=== PATIENT | male | born 1945 | race Caucasian/White ===

== ENCOUNTER 2017-04-30 13:12 | Inpatient (IN) | payer OTHER, BC ==
[~2017-04-30] VITALS: Ht 182.9 cm; Wt 127.0 kg
[~2017-04-30 13:12] MED LIST: ALLO1TAB51 PO; ASPCH81X PO; ATEN50TA8 PO; ONDA4TAB7 SL; PANT40TA PO; SIMV10TA2 PO
[2017-04-30] MEDS ORDERED: FENTANYL CITRATE INJ 50 MCG/1 ML 2 ML VIAL IV STA ×2 (13:41→16:40)
[2017-04-30] MEDS ORDERED: OPTIRAY 320 IV PRN (13:45)
[2017-04-30] MEDS ORDERED: ONDANSETRON INJ 2 MG/ML 2 ML VIAL ONE (13:56)
[2017-04-30 14:03] LABS: BASO % 0.2 %; BASO ABS # 0.02 K/uL (0-0.2); EOS % 0.4 %; EOS ABS # 0.04 K/uL (0-0.5); HEMATOCRIT 43.8 % (42-52); HEMOGLOBIN 15.1 g/dL (14.0-18.0); IG# 0.02 K/uL (0.00-0.02); LYMPH % 10.6 %; LYMPH ABS # 1.21 K/uL (1.2-3.4); MEAN CORPUSCULAR HEMOGLOBIN 29.3 pg (25-34); MEAN CORPUSCULAR HGB CONC 34.5 g/dl (32-36); MEAN PLATELET VOLUME 10.2 fL (7.4-10.4); MONO % 7.8 %; MONO ABS # 0.89 K/uL (0.11-0.59); NEUT % 80.8 %; PLATELET COUNT 232 K/uL (130-400); RED CELL DISTRIBUTION WIDTH CV 13.7 % (11.5-14.5); RED CELL DISTRIBUTION WIDTH SD 42.4 fL (36.4-46.3); WHITE BLOOD COUNT 11.38 K/uL (4.8-10.8)
[2017-04-30 14:09] LABS: ALBUMIN 4.3 gm/dl (3.4-5.0); ALT/SGPT 89 U/L (12-78); BLOOD UREA NITROGEN 12 mg/dl (7-18); CALCIUM 9.4 mg/dl (8.5-10.1); CARBON DIOXIDE 29 mmol/L (21-32); CREATININE 1.12 mg/dl (0.60-1.40); GLUCOSE 126 mg/dl (70-99); POTASSIUM 3.9 mmol/L (3.5-5.1); SODIUM 139 mmol/L (136-145)
[2017-04-30 14:15] LABS: ALKALINE PHOSPHATASE 48 U/L (45-117); AST/SGOT 74 U/L (15-37); TOTAL PROTEIN 7.8 gm/dl (6.4-8.2)
--- NOTE | 2017-04-30 14:20 | EMERGENCY ROOM VISIT NOTE ---
ED Visit Note First contact with patient: 13:24 CHIEF COMPLAINT: Abdominal pain HISTORY OF PRESENTING ILLNESS: This is a 71-year-old male who presents to the emergency department with complaint of upper abdominal pain that started yesterday. He states the pain started abruptly while at rest, was initially very sharp, but is now just a dull ache. He states the pain starts in the epigastric region and radiates down towards his belly button and out to both sides, constant and severe, currently rates as 5/10. He last ate at 11 AM today , states he has had some nausea but no issues with vomiting and eating does not make his pain better or worse. He has not tried any medications for the pain. He states that his abdomen has been feeling bloated today. He has had associated nausea, but no vomiting, denies any fevers or chills, diarrhea, constipation, bloody or black stools, urinary symptoms. The pain does not radiate up into his chest or into his back, he denies any chest pain or shortness of breath, dizziness, syncope, diaphoresis. Past medical history significant for hypertension, hyperlipidemia, and GERD. He denies any previous abdominal surgeries. Denies family history of heart disease. REVIEW OF SYSTEMS: A complete 10 point review of systems was reviewed with the patient with pertinent positives and negatives as per history of present illness. All else were negative. PAST MEDICAL HISTORY: Reviewed in chart. SOCIAL HISTORY: Lives at home with family. Denies tobacco use, admits to occasional alcohol use, denies recreational drug use. ALLERGIES: No known allergies. PHYSICAL EXAM: CONSTITUTIONAL: Pleasant and cooperative. No acute distress. Mildly dehydrated , but otherwise well appearing and well nourished. HEENT: Normocephalic, atraumatic. Pupils equal, round and reactive to light, EOMI. TMs normal. Pharynx normal. Tacky mucous membranes. NECK: Supple, full active range of motion without discomfort. RESPIRATORY: Clear to auscultation bilaterally with no wheezing, crackles, rhonchi or stridor. Equal expansion bilaterally. CARDIOVASCULAR: Regular rate and rhythm with no murmurs, rubs or gallops. Normal peripheral perfusion. No edema. GASTROINTESTINAL: Soft, diffusely tender across the upper abdomen, most tender in the epigastric area, mild tenderness over the periumbilical area, mildly distended. No rebound tenderness, slight guarding of the right and left upper quadrants. No palpable masses or HSM. No pulsatile masses on palpation or bruits heard on auscultation. No CVA tenderness. Bowel sounds present in all quadrants. MUSCULOSKELETAL: Full range of motion of all joints without discomfort. INTEGUMENTARY: No rash or other significant dermatologic conditions noted. NEUROLOGIC: Alert and oriented X 4 with normal affect. Cranial nerves II-XII grossly intact. No focal neurologic deficits noted. Normal strength and sensation in all 4 extremities. Normal speech. Normal gait observed. ED COURSE AND MEDICAL DECISION MAKING: CC: Patient presenting with complaint of abdominal pain DIFFERENTIAL DIAGNOSIS: Includes, but not limited to gastritis, GERD, gastroenteritis, peptic ulcer disease, AAA, ACS, cholecystitis, cholelithiasis, pancreatitis, UTI, bowel obstruction, bowel perforation, among others. INTERPRETATION OF LABS: Mild leukocytosis with left shift, no anemia, no significant electrolyte abnormalities, normal renal function, slightly elevated transaminases but otherwise normal liver enzymes, significantly elevated lipase . Troponin negative. UA shows trace protein, is otherwise negative. IMAGING: CHEST ONE VIEW PORTABLE CLINICAL HISTORY: eval epigastric abd pain pain COMPARISON STUDY: 11/24/2012 FINDINGS: Moderate cardiomegaly. Tortuous thoracic aorta. Diaphragms smooth. Lungs are clear. IMPRESSION: Moderate cardiomegaly. Otherwise negative study. ----- Abdomen and pelvis CTA CT DOSE: 1506.73 mGy.cm HISTORY: Mid abdominal pain. TECHNIQUE: Multiaxial CT images of the abdomen and pelvis were performed following the intravenous administration of contrast to evaluate the major arterial structures. Maximal intensity projection images were also obtained. A dose lowering technique was utilized adhering to the principles of ALARA. COMPARISON STUDY: None. FINDINGS: A 3.6 mm subpleural nodule seen within the lingula. Linear scarlike density within the left lower lobe. No pneumoperitoneum. No pneumatosis. No fractures within the visualized osseous structures. The liver, spleen, adrenal glands are unremarkable. There are 2 small hypodense lesions within the left kidney with the largest on image 166 measuring 1.3 cm. These are difficult to characterize due to their small size but favor cysts. 1.3 cm lesion within the right kidney on image 158 which appears to demonstrate enhancement. This is concerning for a solid renal mass. Punctate stone within the lower pole of the right kidney. No ureteral stones. No hydronephrosis. The bladder is not well-distended but appears unremarkable. Tiny fat-containing left inguinal hernia. A few small gallstones. No gallbladder wall thickening. Mild peripancreatic fat stranding surrounding the entire pancreas. This is consistent with acute pancreatitis. No evidence for pancreatic necrosis at this time. No peripancreatic fluid collections. No retroperitoneal lymphadenopathy. A few duodenal diverticula. The largest measures 1.5 cm. No bowel wall thickening or obstruction. Normal appendix. A few colonic diverticula. Abdominal aorta is normal in course and caliber. No evidence for dissection. The celiac artery and its major branches, superior mesenteric artery, and inferior mesenteric artery are widely patent. The bilateral iliac arteries are normal in course and caliber. There are single bilateral renal arteries which are widely patent. IMPRESSION: 1. Acute pancreatitis. No peripancreatic fluid collections. Follow-up nonemergent pancreatic CT is recommended once the patient's pancreatitis has resolved to exclude the less likely possibility of underlying lesion. 2. A 1.3 cm solid right renal mass. This is suspicious for renal cell carcinoma. This can be confirmed with follow-up dedicated renal MRI. 3. No significant stenosis or occlusion within the mesenteric vessels. No evidence for an abdominal aortic aneurysm. 4. Right-sided nephrolithiasis. No hydronephrosis. 5. Cholelithiasis. ----- ABDOMINAL ULTRASOUND, RIGHT UPPER QUADRANT HISTORY: Pancreatitis. COMPARISON: CT of the abdomen and pelvis April 30, 2017 and abdominal ultrasound February 15, 2015. FINDINGS: Liver is sonographically normal. Caliber of the common bile duct is at the upper limits of normal, measuring 6 mm. No common bile duct calculi are identified although these may be occult by sonography. There are multiple small stones within the gallbladder. There is no gallbladder wall thickening. The pancreas is partially obscured on this exam. No peripancreatic fluid collection is noted. There is no right hydronephrosis. IMPRESSION: 1. Cholelithiasis. No sonographic evidence of acute cholecystitis. 2. Partially obscured pancreas. 3. Borderline dilatation of the common bile duct. No common bile duct calculi identified by sonography. EKG: Shows sinus rhythm with occasional PVCs, left axis deviation, T wave inversions in the lateral leads by my interpretation. When compared to previous EKG from 05/26/2013, PVCs and T wave changes are new. MEDICATION RECONCILIATION: I attest that I have personally reviewed the patient 's current medication list. INITIAL VITAL SIGNS REVIEW: I reviewed the patient's initial vital signs and interpret them as follows: T: Afebrile; BP: Hypertensive; HR: Within normal limits; RR: Within normal limits; Pulse Ox: Within normal limits on room air. Blood pressure screening: The patient was found to have an elevated blood pressure and was referred to the inpatient hospitalist team for further management. SUMMARY: Patient was evaluated at bedside, history and physical exam performed. Patient is alert and oriented, no acute distress but does appear uncomfortable, resting calmly in the stretcher. Patient's abdomen is mildly distended, diffusely tender across the top of the abdomen, most tender in the epigastric region. He reports some nausea, but has not had any vomiting, and states he has been able to tolerate PO, and eating does not make his pain worse. Given his report of sudden onset of midline abdominal pain that has now become diffuse along with some abdominal bloating, I am most concerned for possible AAA. Orders were placed at bedside for labs, UA, IV fluids for hydration, IV fentanyl for pain, IV Zofran for nausea, chest x-ray, EKG, CTA abdomen/pelvis to evaluate for AAA and other intra-abdominal abnormalities. Patient discussed with Dr. Rajput, who agrees with my assessment and plan. Labs and imaging reviewed as above, findings consistent with acute pancreatitis. No evidence of AAA. Incidental finding of a right renal mass. Orders were placed for a right upper quadrant ultrasound, this was reviewed and does not show any significant evidence for common bile duct dilation or obstruction, and liver enzymes are not significantly elevated at this time. I discussed the patient over the phone with Dr. Rascon, gastroenterology, who states the patient most likely does not require an ERCP at this time, and should be admitted, kept NPO, and aggressively fluid hydrated. I spoke with Dr. Goldberg, hospitalist, who agrees to admit the patient. Patient reassessed multiple times throughout ED stay, the patient's pain has been adequately controlled with IV fentanyl and he remains stable. Patient was updated on all results and plan for admission, he verbalized understanding and was agreeable to this plan. Patient was stable at time of admission. Problem List Medical Problems: (1) HTN (hypertension) Status: Chronic Current/Historical Medications Scheduled Allopurinol (Allopurinol), 100 MG PO DAILY Aspirin (Aspirin Chewable), 81 MG PO DAILY Losartan Potassium (Losartan Potassium), 50 MG PO QPM Nebivolol Hcl (Bystolic), 5 MG PO QPM Pantoprazole Sodium (Protonix), 40 MG PO DAILY Simvastatin (Zocor), 20 MG PO QPM Allergies Coded Allergies: No Known Allergies (Unverified , 04/30/17) Vital Signs Date Time Temp Pulse Resp B/P (MAP) Pulse Ox O2 Delivery O2 Flow Rate FiO2 04/30/17 17:53 66 18 164/85 97 04/30/17 16:50 59 18 113/64 91 Room Air 04/30/17 15:11 56 18 124/56 91 Room Air 04/30/17 14:03 63 04/30/17 13:18 36.4 70 20 162/97 94 Room Air Laboratory Results 04/30/17 13:27 Red Blood Count 5.15, Mean Corpuscular Volume 85.0, Mean Corpuscular Hemoglobin 29.3, Mean Corpuscular Hemoglobin Concent 34.5, Mean Platelet Volume 10.2, Neutrophils (%) (Auto) 80.8, Lymphocytes (%) (Auto) 10.6, Monocytes (%) (Auto) 7.8, Eosinophils (%) (Auto) 0.4, Basophils (%) (Auto) 0.2, Neutrophils # (Auto) 9.20, Lymphocytes # (Auto) 1.21, Monocytes # (Auto) 0.89, Eosinophils # (Auto) 0.04, Basophils # (Auto) 0.02 04/30/17 13:27 Test 04/30/17 13:27 04/30/17 14:14 04/30/17 17:54 White Blood Count 11.38 K/uL (4.8-10.8) Red Blood Count 5.15 M/uL (4.7-6.1) Hemoglobin 15.1 g/dL (14.0-18.0) Hematocrit 43.8 % (42-52) Mean Corpuscular Volume 85.0 fL (80-100) Mean Corpuscular Hemoglobin 29.3 pg (25-34) Mean Corpuscular Hemoglobin Concent 34.5 g/dl (32-36) Platelet Count 232 K/uL (130-400) Mean Platelet Volume 10.2 fL (7.4-10.4) Neutrophils (%) (Auto) 80.8 % Lymphocytes (%) (Auto) 10.6 % Monocytes (%) (Auto) 7.8 % Eosinophils (%) (Auto) 0.4 % Basophils (%) (Auto) 0.2 % Neutrophils # (Auto) 9.20 K/uL (1.4-6.5) Lymphocytes # (Auto) 1.21 K/uL (1.2-3.4) Monocytes # (Auto) 0.89 K/uL (0.11-0.59) Eosinophils # (Auto) 0.04 K/uL (0-0.5) Basophils # (Auto) 0.02 K/uL (0-0.2) RDW Standard Deviation 42.4 fL (36.4-46.3) RDW Coefficient of Variation 13.7 % (11.5-14.5) Immature Granulocyte % (Auto) 0.2 % Immature Granulocyte # (Auto) 0.02 K/uL (0.00-0.02) Prothrombin Time 11.0 SECONDS (9.0-12.0) Prothromb Time International Ratio 1.0 (0.9-1.1) Anion Gap 6.0 mmol/L (3-11) Est Creatinine Clear Calc Drug Dose 85.7 ml/min Estimated GFR () 77.3 Estimated GFR (Non- 66.7 BUN/Creatinine Ratio 10.7 (10-20) Calcium Level 9.4 mg/dl (8.5-10.1) Total Bilirubin 0.9 mg/dl (0.2-1) Direct Bilirubin 0.4 mg/dl (0-0.2) Aspartate Amino Transf (AST/SGOT) 74 U/L (15-37) Alanine Aminotransferase (ALT/SGPT) 89 U/L (12-78) Alkaline Phosphatase 48 U/L (45-117) Troponin I < 0.015 ng/ml (0-0.045) Total Protein 7.8 gm/dl (6.4-8.2) Albumin 4.3 gm/dl (3.4-5.0) Triglycerides Level 127 mg/dl (0-150) Lipase 20162 U/L (73-393) Urine Color DK YELLOW Urine Appearance CLEAR (CLEAR) Urine pH 6.0 (4.5-7.5) Urine Specific Ledbetter 1.014 (1.000-1.030) Urine Protein TRACE (NEG) Urine Glucose (UA) NEG (NEG) Urine Ketones NEG (NEG) Urine Occult Blood NEG (NEG) Urine Nitrite NEG (NEG) Urine Bilirubin NEG (NEG) Urine Urobilinogen NEG (NEG) Urine Leukocyte Esterase NEG (NEG) Urine WBC (Auto) 1-5 /hpf (0-5) Urine RBC (Auto) 0-4 /hpf (0-4) Urine Hyaline Casts (Auto) 1-5 /lpf (0-5) Urine Epithelial Cells (Auto) 0-5 /lpf (0-5) Urine Bacteria (Auto) NEG (NEG) Medications Administered Medications (Trade) Dose Ordered Sig/Kylie Route Start Time Stop Time Status Last Admin Dose Admin Fentanyl Citrate (Fentanyl Inj) 100 mcg NOW STAT IV 04/30/17 13:41 04/30/17 13:43 DC 04/30/17 14:00 100 MCG Ondansetron HCl (Zofran Inj) 4 mg STK-MED ONCE .ROUTE 04/30/17 13:56 04/30/17 13:57 DC 04/30/17 14:00 4 MG Sodium Chloride 1,000 ml @ 999 mls/hr Q1H1M STAT IV 04/30/17 14:58 04/30/17 15:58 DC 04/30/17 15:10 999 MLS/HR Sodium Chloride 1,000 ml @ 999 mls/hr Q1H1M STAT IV 04/30/17 16:26 04/30/17 17:26 DC 04/30/17 16:47 999 MLS/HR Fentanyl Citrate (Fentanyl Inj) 100 mcg NOW STAT IV 04/30/17 16:40 04/30/17 16:41 DC 04/30/17 16:48 100 MCG Departure Information Referrals Lakia Roper D.O. (PCP) Patient Instructions My [facility]
[2017-04-30 14:30] LABS: LIPASE 40687 U/L (73-393)
--- NOTE | 2017-04-30 14:33 | DIAGNOSTIC IMAGING REPORT ---
CHEST ONE VIEW PORTABLE CLINICAL HISTORY: eval epigastric abd pain pain COMPARISON STUDY: 11/24/2012 FINDINGS: Moderate cardiomegaly. Tortuous thoracic aorta. Diaphragms smooth. Lungs are clear. IMPRESSION: Moderate cardiomegaly. Otherwise negative study. The above report was generated using voice recognition software. It may contain grammatical, syntax or spelling errors. Electronically signed by: Patric Moy M.D. 04/30/2017 2:32 PM Dictated Date/Time: 04/30/2017 2:31 PM
[2017-04-30] MEDS ORDERED: BYS/5 PO (14:48)
[2017-04-30] MEDS ORDERED: SIMV20TA2 PO (14:48)
[2017-04-30] MEDS ORDERED: CZR50 PO (14:48)
[2017-04-30] MEDS ORDERED: ONDANSETRON INJ 2 MG/ML 2 ML VIAL IV STA (14:58)
[2017-04-30] MEDS ORDERED: SODIUM CHLORIDE 0.9% 1000ML 1,000 ML IV STA ×2 (14:58→16:26)
--- NOTE | 2017-04-30 15:04 | DIAGNOSTIC IMAGING REPORT ---
Abdomen and pelvis CTA CT DOSE: 1506.73 mGy.cm HISTORY: Mid abdominal pain. TECHNIQUE: Multiaxial CT images of the abdomen and pelvis were performed following the intravenous administration of contrast to evaluate the major arterial structures. Maximal intensity projection images were also obtained. A dose lowering technique was utilized adhering to the principles of ALARA. COMPARISON STUDY: None. FINDINGS: A 3.6 mm subpleural nodule seen within the lingula. Linear scarlike density within the left lower lobe. No pneumoperitoneum. No pneumatosis. No fractures within the visualized osseous structures. The liver, spleen, adrenal glands are unremarkable. There are 2 small hypodense lesions within the left kidney with the largest on image 166 measuring 1.3 cm. These are difficult to characterize due to their small size but favor cysts. 1.3 cm lesion within the right kidney on image 158 which appears to demonstrate enhancement. This is concerning for a solid renal mass. Punctate stone within the lower pole of the right kidney. No ureteral stones. No hydronephrosis. The bladder is not well-distended but appears unremarkable. Tiny fat-containing left inguinal hernia. A few small gallstones. No gallbladder wall thickening. Mild peripancreatic fat stranding surrounding the entire pancreas. This is consistent with acute pancreatitis. No evidence for pancreatic necrosis at this time. No peripancreatic fluid collections. No retroperitoneal lymphadenopathy. A few duodenal diverticula. The largest measures 1.5 cm. No bowel wall thickening or obstruction. Normal appendix. A few colonic diverticula. Abdominal aorta is normal in course and caliber. No evidence for dissection. The celiac artery and its major branches, superior mesenteric artery, and inferior mesenteric artery are widely patent. The bilateral iliac arteries are normal in course and caliber. There are single bilateral renal arteries which are widely patent. IMPRESSION: 1. Acute pancreatitis. No peripancreatic fluid collections. Follow-up nonemergent pancreatic CT is recommended once the patient's pancreatitis has resolved to exclude the less likely possibility of underlying lesion. 2. A 1.3 cm solid right renal mass. This is suspicious for renal cell carcinoma. This can be confirmed with follow-up dedicated renal MRI. 3. No significant stenosis or occlusion within the mesenteric vessels. No evidence for an abdominal aortic aneurysm. 4. Right-sided nephrolithiasis. No hydronephrosis. 5. Cholelithiasis. Electronically signed by: Clif Grier M.D. 04/30/2017 3:03 PM Dictated Date/Time: 04/30/2017 2:44 PM
--- NOTE | 2017-04-30 16:21 | DIAGNOSTIC IMAGING REPORT ---
ABDOMINAL ULTRASOUND, RIGHT UPPER QUADRANT HISTORY: Pancreatitis. COMPARISON: CT of the abdomen and pelvis April 30, 2017 and abdominal ultrasound February 15, 2015. FINDINGS: Liver is sonographically normal. Caliber of the common bile duct is at the upper limits of normal, measuring 6 mm. No common bile duct calculi are identified although these may be occult by sonography. There are multiple small stones within the gallbladder. There is no gallbladder wall thickening. The pancreas is partially obscured on this exam. No peripancreatic fluid collection is noted. There is no right hydronephrosis. IMPRESSION: 1. Cholelithiasis. No sonographic evidence of acute cholecystitis. 2. Partially obscured pancreas. 3. Borderline dilatation of the common bile duct. No common bile duct calculi identified by sonography. Electronically signed by: Teo Rene M.D. 04/30/2017 4:20 PM Dictated Date/Time: 04/30/2017 4:17 PM
[2017-04-30] MEDS ORDERED: POLYETHYLENE (MIRALAX) 17 GM PACK PO PRN (17:15)
--- NOTE | 2017-04-30 17:26 | History and Physical ---
History & Physical Date & Time of Service: Apr 30, 2017 at 17:25 Chief Complaint: Stomach Pain Primary Care Physician: Lakia Roper D.O. History of Present Illness Source: patient 71 Yo presented with abdominal pain since yesterday , pain stared in mid abdomen , epigastric area and radiation to both flank had dull aching pain ,associated with Nausea this morning he woke up with similar pain 6/10 , abdominal bloating poor appetite with nausea , no episode of vomiting no fever or chills no diarrhea or dark stool called [facility] was advised to come to ER in ER lipase level elevated > 40, 000 CT abdomen pelvis /Abd USG suggestive of ac pancreatitis no Hx of ETOH intake Medication change : recently started on higher dose of simvastatin ( was on 20 mg X3 week ) to simvastatin 20 mg daily Social History Smoking Status: Never Smoker Marital Status: Multi-Drug Resistant Organisms History of MDRO: No Allergies Coded Allergies: No Known Allergies (Unverified , 04/30/17) Home Medications Scheduled Allopurinol (Allopurinol), 100 MG PO DAILY Aspirin (Aspirin Chewable), 81 MG PO DAILY Losartan Potassium (Losartan Potassium), 50 MG PO QPM Nebivolol Hcl (Bystolic), 5 MG PO QPM Pantoprazole Sodium (Protonix), 40 MG PO DAILY Simvastatin (Zocor), 20 MG PO QPM Review of Systems Constitutional: + chills, + weakness, + fatigue ENT: No hearing loss, No unusual epistaxis, No nasal symptoms, No sore throat, No tinnitus, No dental problems, No trouble swallowing, No problem reported Respiratory: No cough, No sputum, No wheezing, No shortness of breath, No dyspnea on exertion, No dyspnea at rest, No hemoptysis, No problem reported Abdomen: + pain, + nausea, + problem reported (epigastric pain radiation to sided ) Musculoskeletal: No joint pain, No muscle pain, No swelling, No calf pain, No problem reported Genitourinary - Male: No hematuria, No dysuria, No urinary frequency, No urinary urgency, No urinary hesitancy, No urinary retention, No urinary incontinence, No penile discharge, No lesions, No impotence, No problem reported Neurologic: No memory loss, No paralysis, No weakness, No numbness/tingling, No vertigo, No balance problems, No problem reported Physical Exam Vital Signs Date Time Temp Pulse Resp B/P (MAP) Pulse Ox O2 Delivery O2 Flow Rate FiO2 04/30/17 16:50 59 18 113/64 91 Room Air 04/30/17 15:11 56 18 124/56 91 Room Air 04/30/17 14:03 63 04/30/17 13:18 36.4 70 20 162/97 94 Room Air General Appearance: no apparent distress Eyes: normal inspection, PERRL, EOMI, sclerae normal Neck: no JVD, no carotid bruits, trachea midline Respiratory/Chest: chest non-tender, lungs clear, normal breath sounds, no respiratory distress Cardiovascular: regular rate, rhythm, no edema, no JVD Abdomen/GI: + tenderness (in mid abdomen ), + abnormal bowel sounds ( hypoactive ) Extremities/Musculoskelatal: normal capillary refill, no pedal edema Neurologic/Psych: no motor/sensory deficits, alert, oriented x 3 Diagnostics Laboratory Results Results Past 24 Hours Test 04/30/17 13:27 04/30/17 14:14 Range/Units White Blood Count 11.38 4.8-10.8 K/uL Red Blood Count 5.15 4.7-6.1 M/uL Hemoglobin 15.1 14.0-18.0 g/dL Hematocrit 43.8 42-52 % Mean Corpuscular Volume 85.0 80-100 fL Mean Corpuscular Hemoglobin 29.3 25-34 pg Mean Corpuscular Hemoglobin Concent 34.5 32-36 g/dl Platelet Count 232 130-400 K/uL Mean Platelet Volume 10.2 7.4-10.4 fL Neutrophils (%) (Auto) 80.8 % Lymphocytes (%) (Auto) 10.6 % Monocytes (%) (Auto) 7.8 % Eosinophils (%) (Auto) 0.4 % Basophils (%) (Auto) 0.2 % Neutrophils # (Auto) 9.20 1.4-6.5 K/uL Lymphocytes # (Auto) 1.21 1.2-3.4 K/uL Monocytes # (Auto) 0.89 0.11-0.59 K/uL Eosinophils # (Auto) 0.04 0-0.5 K/uL Basophils # (Auto) 0.02 0-0.2 K/uL RDW Standard Deviation 42.4 36.4-46.3 fL RDW Coefficient of Variation 13.7 11.5-14.5 % Immature Granulocyte % (Auto) 0.2 % Immature Granulocyte # (Auto) 0.02 0.00-0.02 K/uL Prothrombin Time 11.0 9.0-12.0 SECONDS Prothromb Time International Ratio 1.0 0.9-1.1 Sodium Level 139 136-145 mmol/L Potassium Level 3.9 3.5-5.1 mmol/L Chloride Level 104 98-107 mmol/L Carbon Dioxide Level 29 21-32 mmol/L Anion Gap 6.0 3-11 mmol/L Blood Urea Nitrogen 12 7-18 mg/dl Creatinine 1.12 0.60-1.40 mg/dl Est Creatinine Clear Calc Drug Dose 85.7 ml/min Estimated GFR () 77.3 Estimated GFR (Non- 66.7 BUN/Creatinine Ratio 10.7 10-20 Random Glucose 126 70-99 mg/dl Calcium Level 9.4 8.5-10.1 mg/dl Total Bilirubin 0.9 0.2-1 mg/dl Direct Bilirubin 0.4 0-0.2 mg/dl Aspartate Amino Transf (AST/SGOT) 74 15-37 U/L Alanine Aminotransferase (ALT/SGPT) 89 12-78 U/L Alkaline Phosphatase 48 45-117 U/L Troponin I < 0.015 0-0.045 ng/ml Total Protein 7.8 6.4-8.2 gm/dl Albumin 4.3 3.4-5.0 gm/dl Lipase 66719 73-393 U/L Urine Color DK YELLOW Urine Appearance CLEAR CLEAR Urine pH 6.0 4.5-7.5 Urine Specific [place] 1.014 1.000-1.030 Urine Protein TRACE NEG Urine Glucose (UA) NEG NEG Urine Ketones NEG NEG Urine Occult Blood NEG NEG Urine Nitrite NEG NEG Urine Bilirubin NEG NEG Urine Urobilinogen NEG NEG Urine Leukocyte Esterase NEG NEG Urine WBC (Auto) 1-5 0-5 /hpf Urine RBC (Auto) 0-4 0-4 /hpf Urine Hyaline Casts (Auto) 1-5 0-5 /lpf Urine Epithelial Cells (Auto) 0-5 0-5 /lpf Urine Bacteria (Auto) NEG NEG Diagnostic Radiology CTA ANGIOGRAPHY OF ABDOMEN/PELVIS : IMPRESSION: 1. Acute pancreatitis. No peripancreatic fluid collections. Follow-up nonemergent pancreatic CT is recommended once the patient's pancreatitis has resolved to exclude the less likely possibility of underlying lesion. 2. A 1.3 cm solid right renal mass. This is suspicious for renal cell carcinoma. This can be confirmed with follow-up dedicated renal MRI. 3. No significant stenosis or occlusion within the mesenteric vessels. No evidence for an abdominal aortic aneurysm. 4. Right-sided nephrolithiasis. No hydronephrosis. 5. Cholelithiasis. ABDOMEN ULTRASOUND : ABDOMINAL ULTRASOUND, RIGHT UPPER QUADRANT HISTORY: Pancreatitis. COMPARISON: CT of the abdomen and pelvis April 30, 2017 and abdominal ultrasound February 15, 2015. FINDINGS: Liver is sonographically normal. Caliber of the common bile duct is at the upper limits of normal, measuring 6 mm. No common bile duct calculi are identified although these may be occult by sonography. There are multiple small stones within the gallbladder. There is no gallbladder wall thickening. The pancreas is partially obscured on this exam. No peripancreatic fluid collection is noted. There is no right hydronephrosis. IMPRESSION: 1. Cholelithiasis. No sonographic evidence of acute cholecystitis. 2. Partially obscured pancreas. 3. Borderline dilatation of the common bile duct. No common bile duct calculi identified by sonography. CHEST XRAY : CHEST ONE VIEW PORTABLE CLINICAL HISTORY: eval epigastric abd pain pain COMPARISON STUDY: 11/24/2012 FINDINGS: Moderate cardiomegaly. Tortuous thoracic aorta. Diaphragms smooth. Lungs are clear. IMPRESSION: Moderate cardiomegaly. Otherwise negative study. EKG Vent. rate 62 BPM SD interval 206 ms QRS duration 98 ms QT/QTc 410/416 ms P-R-T axes -7 -31 117 Sinus rhythm with occasional Premature ventricular complexes Left axis deviation Moderate voltage criteria for LVH, may be normal variant T wave abnormality, consider lateral ischemia Abnormal ECG When compared with ECG of 26-MAY-2013 07:14, Premature ventricular complexes are now Present T wave inversion now evident in Lateral leads Impression Assessment and Plan ACUTE PANCREATITIS ; presented with abdominal pain for [address] abdomen /pelvis shows : Acute pancreatitis. No peripancreatic fluid collections Abdominal USG : 1. Cholelithiasis. No sonographic evidence of acute cholecystitis. 2. Partially obscured pancreas. 3. Borderline dilatation of the common bile duct. No common bile duct calculi identified by sonography. Lipase level elevated > 40 K with mild elevation of ALT/AST pt given NSS IV fluid bolus in ER cont IVF LR @200 ml /hr pain control , NPO GI eval requested may Need MRCP to r/o choledocholithiasis pt has significant claustrophobia-will need Anxiolytic prior to MRI -ordered no hx of ETOH intake ordered for TG level repeat LFT/Lipase /Amylase level in AM HX OF PVC /PREMATURE VENTRICULAR CONTRACTION : follows with Cardiology Dr Owens had recent Holter monitor on low dose Beta duncan -Bystolic , on hold for NPO status pt denies of any symptom of palpitation or dizzy spell /chest tightness monitor RENAL MASS : incidental finding in CT abdomen A 1.3 cm solid right renal mass. This is suspicious for renal cell carcinoma. This can be confirmed with follow-up dedicated renal MRI. no report of hematuria or wt loss Urology consult requested HYPERLIPIDEMIA : hold statin for ac pancreatitis fasting lipid panel in AM labs HYPOTHYROIDISM : hold levothyroxine for NPO status /ac pancreatitis TSH level ordered HTN : SBP In 110-120's -possible due to intravascular vol loss due to ac pancreatitis Hold losartan cont aggressive Iv fluid resuscitation per Ac pancreatitis protocol FULL CODE -D/w pt DVT PROPHYLAXIS : SCD /TEDS pharmacological anticoagulation not ordered as pt may need GI procedure ERCP DISPOSITION : expected to be discharge home when medically stable Medicine follow up with Dr Stewart Level of Care Med/Surg Resuscitation Status FULL RESUSCITATION VTE Prophylaxis VTE Risk Assessment Done? Y/N: Yes Risk Level: Moderate Given or contraindicated: Annika Stockings, SCD's Additional Copies To Jose Manuel Stewart M.D.
[2017-04-30] MEDS ORDERED: LORAZEPAM 2 MG/ML 1 ML VIAL IV PRN (17:30)
[2017-04-30 18:10] VITALS: BP 159/80; PULSE 60; TEMP 36.3; O2SAT 93
[2017-04-30] MEDS ORDERED: LORAZEPAM INJ 1 MG in SYRINGE 0.5 ML IV PRN (18:45)
[2017-04-30] MEDS ORDERED: PANTOprazole INJ 40 MG in SYRINGE 0 ML IV ONE (18:45)
[2017-04-30] MEDS: ONDANSETRON INJ 2 MG/ML 2 ML VIAL IV PRN ×2 (18:56→23:17)
[2017-04-30] MEDS: HYDROmorphone INJ 1 MG/ML SYR IV PRN ×2 (18:57→23:18)
[2017-04-30] MEDS: LACTATED RINGER'S 1000ML 1,000 ML IV SCH ×2 (18:57→23:41)
[2017-04-30 19:47] VITALS: BP 159/80; PULSE 60; TEMP 36.3; BMI 38.0
[2017-04-30 23:14] VITALS: BP 124/72; PULSE 62; TEMP 37.5; O2SAT 91
[2017-05-01] MEDS: LACTATED RINGER'S 1000ML 1,000 ML IV SCH ×5 (04:08→23:06)
[2017-05-01] MEDS: HYDROmorphone INJ 1 MG/ML SYR IV PRN ×3 (06:04→19:02)
[2017-05-01] MEDS: ONDANSETRON INJ 2 MG/ML 2 ML VIAL IV PRN ×3 (06:38→19:01)
[2017-05-01 06:40] LABS: HEMATOCRIT 36.1 % (42-52); HEMOGLOBIN 12.3 g/dL (14.0-18.0); MEAN CELL VOLUME 86.8 fL (80-100); MEAN CORPUSCULAR HEMOGLOBIN 29.6 pg (25-34); MEAN CORPUSCULAR HGB CONC 34.1 g/dl (32-36); MEAN PLATELET VOLUME 9.8 fL (7.4-10.4); PLATELET COUNT 177 K/uL (130-400); RED CELL DISTRIBUTION WIDTH SD 44.3 fL (36.4-46.3); WHITE BLOOD COUNT 7.66 K/uL (4.8-10.8)
[2017-05-01 07:20] VITALS: BP 118/72; PULSE 64; TEMP 36.6; O2SAT 89
[2017-05-01 07:21] LABS: ALBUMIN 3.2 gm/dl (3.4-5.0); CALCIUM 8.4 mg/dl (8.5-10.1); CREATININE 1.01 mg/dl (0.60-1.40); POTASSIUM 3.8 mmol/L (3.5-5.1)
[2017-05-01 07:29] LABS: TOTAL PROTEIN 6.1 gm/dl (6.4-8.2)
--- NOTE | 2017-05-01 10:22 | Progress Note ---
Medicine Progress Note Date & Time of Visit: May 01, 2017 at 10:14. Subjective seen resting in bed, appears comfortable states he feels about the same as yesterday abdominal pain is relieved with PRN analgesics denies shortness of breath, chest pain, nausea no other symptoms Objective Last 8 Hrs Date Time Temp Pulse Resp B/P (MAP) Pulse Ox O2 Delivery O2 Flow Rate FiO2 05/01/17 08:00 Room Air 05/01/17 07:20 36.6 64 20 118/72 (87) 89 Physical Exam: General- oriented x 3, not in distress, speaks in sentences with no effort Head- atraumatic Eyes- PERRL, EOMI, anicteric ENT- oropharynx clear Neck- supple, no JVD, no adenopathy, no thyromegaly; carotids +2/2 Lungs- clear breath sounds bilaterally Heart- regular rhythm; no murmur, normal rate Abdomen- normal bowel sounds, soft, nontender, non distended Extremities- no pretibial edema, no calf tenderness; peripheral pulses intact Neuro- alert, oriented x 3; no gross focal deficits Skin- warm & dry Laboratory Results: Last 24 Hours Test 04/30/17 13:27 04/30/17 14:14 04/30/17 18:41 05/01/17 05:58 White Blood Count 11.38 K/uL 7.66 K/uL Red Blood Count 5.15 M/uL 4.16 M/uL Hemoglobin 15.1 g/dL 12.3 g/dL Hematocrit 43.8 % 36.1 % Mean Corpuscular Volume 85.0 fL 86.8 fL Mean Corpuscular Hemoglobin 29.3 pg 29.6 pg Mean Corpuscular Hemoglobin Concent 34.5 g/dl 34.1 g/dl Platelet Count 232 K/uL 177 K/uL Mean Platelet Volume 10.2 fL 9.8 fL Neutrophils (%) (Auto) 80.8 % Lymphocytes (%) (Auto) 10.6 % Monocytes (%) (Auto) 7.8 % Eosinophils (%) (Auto) 0.4 % Basophils (%) (Auto) 0.2 % Neutrophils # (Auto) 9.20 K/uL Lymphocytes # (Auto) 1.21 K/uL Monocytes # (Auto) 0.89 K/uL Eosinophils # (Auto) 0.04 K/uL Basophils # (Auto) 0.02 K/uL RDW Standard Deviation 42.4 fL 44.3 fL RDW Coefficient of Variation 13.7 % 14.0 % Immature Granulocyte % (Auto) 0.2 % Immature Granulocyte # (Auto) 0.02 K/uL Prothrombin Time 11.0 SECONDS Prothromb Time International Ratio 1.0 Sodium Level 139 mmol/L 139 mmol/L Potassium Level 3.9 mmol/L 3.8 mmol/L Chloride Level 104 mmol/L 105 mmol/L Carbon Dioxide Level 29 mmol/L 29 mmol/L Anion Gap 6.0 mmol/L 5.0 mmol/L Blood Urea Nitrogen 12 mg/dl 12 mg/dl Creatinine 1.12 mg/dl 1.01 mg/dl Est Creatinine Clear Calc Drug Dose 85.7 ml/min 95.1 ml/min Estimated GFR () 77.3 87.6 Estimated GFR (Non- 66.7 75.5 BUN/Creatinine Ratio 10.7 12.2 Random Glucose 126 mg/dl 96 mg/dl Calcium Level 9.4 mg/dl 8.4 mg/dl Total Bilirubin 0.9 mg/dl 0.6 mg/dl Direct Bilirubin 0.4 mg/dl 0.2 mg/dl Aspartate Amino Transf (AST/SGOT) 74 U/L 37 U/L Alanine Aminotransferase (ALT/SGPT) 89 U/L 61 U/L Alkaline Phosphatase 48 U/L 38 U/L Troponin I < 0.015 ng/ml Total Protein 7.8 gm/dl 6.1 gm/dl Albumin 4.3 gm/dl 3.2 gm/dl Triglycerides Level 127 mg/dl 63 mg/dl Lipase 35481 U/L 7673 U/L Procalcitonin 0.05 ng/ml Urine Color DK YELLOW Urine Appearance CLEAR Urine pH 6.0 Urine Specific [place] 1.014 Urine Protein TRACE Urine Glucose (UA) NEG Urine Ketones NEG Urine Occult Blood NEG Urine Nitrite NEG Urine Bilirubin NEG Urine Urobilinogen NEG Urine Leukocyte Esterase NEG Urine WBC (Auto) 1-5 /hpf Urine RBC (Auto) 0-4 /hpf Urine Hyaline Casts (Auto) 1-5 /lpf Urine Epithelial Cells (Auto) 0-5 /lpf Urine Bacteria (Auto) NEG Lactic Acid Level 0.6 mmol/L Globulin 2.9 gm/dl Albumin/Globulin Ratio 1.1 Cholesterol Level 98 mg/dl HDL Cholesterol 43 mg/dl LDL Cholesterol, Calculated 42 mg/dl VLDL Cholesterol, Calculated 13 mg/dl Cholesterol/HDL Ratio 2.3 Amylase Level 984 U/L Assessment & Plan 71 year old male with history of HTN, HLD presenting with abdominal pain ACUTE PANCREATITIS possible GALLSTONE RELATED presented with abdominal pain for [address] abdomen /pelvis shows : Acute pancreatitis. No peripancreatic fluid collections Abdominal USG : 1. Cholelithiasis. No sonographic evidence of acute cholecystitis. 2. Partially obscured pancreas. 3. Borderline dilatation of the common bile duct. No common bile duct calculi identified by sonography. Lipase level elevated > 40 K --> improved to 7000s LFTs normalized MRCP pending GI consulted continue IV LR 200cc/hr RENAL MASS : incidental finding in CT abdomen A 1.3 cm solid right renal mass. This is suspicious for renal cell carcinoma. This can be confirmed with follow-up dedicated renal MRI. -- Urology consulted HTN : - BP on the lower side this AM continue Nebivolol hold Losartan - monitor HX OF PVC /PREMATURE VENTRICULAR CONTRACTION : follows with Cardiology Dr Owens had recent Holter monitor - continue Nebivolol HYPERLIPIDEMIA : hold statin for ac pancreatitis HYPOTHYROIDISM : continue Lthyroxine DVT proph SCDs Dispo anticipate d/c home when medically stable Current Inpatient Medications: Current Inpatient Medications Medications (Trade) Dose Ordered Sig/Kylie Route Start Time Stop Time Status Last Admin Dose Admin Ioversol (Optiray 320) 100 ml UD PRN IV 04/30/17 13:45 05/04/17 13:44 Lactated Ringer's 1,000 ml @ 200 mls/hr Q5H IV 04/30/17 18:45 05/30/17 18:44 05/01/17 09:10 200 MLS/HR Ondansetron HCl (Zofran Inj) 4 mg Q4H PRN IV 04/30/17 17:15 05/30/17 17:14 05/01/17 06:38 4 MG Hydromorphone HCl (Dilaudid Inj) 1 mg Q3H PRN IV 04/30/17 17:15 05/14/17 17:14 05/01/17 06:04 1 MG Lorazepam 1 mg/ Syringe 1 ml @ 1 mls/min Q6 PRN IV 04/30/17 18:45 05/30/17 18:44
[2017-05-01 14:59] VITALS: BP 116/70; PULSE 62; TEMP 36.4; O2SAT 95
[2017-05-01] MEDS ORDERED: LACTATED RINGER'S 1000ML 1,000 ML IV SCH (16:00)
[2017-05-01 16:10] VITALS: O2SAT 95
--- NOTE | 2017-05-01 17:32 | DIAGNOSTIC IMAGING REPORT ---
MRCP CLINICAL HISTORY: Abdominal pain. Pancreatitis. Cholelithiasis. COMPARISON STUDY: Biliary ultrasound dated 04/30/2017 FINDINGS: Multiple gallbladder calculi are visualized. There is gallbladder wall edema. The gallbladder wall measures 5 mm. There are equivocal tiny calculi within the cystic duct. No common bile duct calculi are visualized. The common bile duct measures 5 mm. There is no pancreatic ductal dilatation. IMPRESSION: 1. Cholelithiasis with gallbladder wall thickening/edema. In the setting of right upper quadrant abdominal pain, this could indicate acute cholecystitis. If clinically indicated, correlation with a nuclear medicine hepatobiliary scan could be obtained to assess cystic duct patency 2. No evidence of ductal dilatation. 3. No common bile duct calculi identified Electronically signed by: Joey Starks M.D. 05/01/2017 5:31 PM Dictated Date/Time: 05/01/2017 5:26 PM
[2017-05-01] MEDS: NEBIVOLOL HCL 5 MG TAB PO SCH (19:02)
--- NOTE | 2017-05-01 19:03 | GASTROINTESTINAL CONSULTATION ---
DATE OF CONSULTATION: 05/01/2017 REFERRED BY: Dr. Delgado. HISTORY OF PRESENT ILLNESS: I was asked by Dr. Delgado to consult on this gentleman for evaluation of pancreatitis. The patient is a 71-year-old with his at the bedside. He states he was in [place] doing work and on Wednesday developed sudden onset of epigastric discomfort. This was sharp knife-like in nature and came on suddenly, he denies ever having had symptoms like this. He does not drink alcohol. The pain continued and he decided to drive home back to this area and he presented Wednesday afternoon to the Emergency Room and was found to have pancreatitis. He denies any new medications, though he has recently increased dose of his anticholesterol medication. He does not drink. He denies any abdominal injuries. In the ER, he received aggressive IV hydration and has already been feeling better. He still has some low level epigastric discomfort, there is no radiation to his shoulder or back. He denies any jaundice illness. He denies any fever. He had some mild nausea but this has resolved. He desires to drink, especially coffee, but he does not have a significant desire for food at this point. He has not had a recent bowel movement, though he has had some flatus. PAST MEDICAL HISTORY: I reviewed his medical records and past medical history, and his past medical history is significant for high cholesterol, reflux disease, hypertension. OUTPATIENT MEDICATIONS: Include allopurinol, baby aspirin, losartan, Bystolic, pantoprazole and simvastatin. ALLERGIES: He denies any drug allergies. SOCIAL HISTORY: Not significant for active smoking or significant alcohol use. FAMILY HISTORY: Negative for gastrointestinal disease. REVIEW OF SYSTEMS: As above, otherwise he denies any recent jaundice. He denies any icterus, pruritus or rashes. He has had no change in his vision or hearing. He denies any joint swelling or pains. He has had no dysuria. He denies any history of seizures recently or change in mood. He has had no gait imbalance. He denies any polyuria or polydipsia. He has had no productive cough, chest pain or shortness of breath. He denies any trouble swallowing. He has had no recent memory loss. PHYSICAL EXAMINATION: GENERAL: Reveals a pleasant gentleman in no distress, again with his at the bedside. VITAL SIGNS: His most recent temperature is 36.4, blood pressure is 116/70, pulse is 62. SKIN: Anicteric. HEENT: Eyes show anicteric sclerae. Mouth is clear of lesions with dry mucous membranes. NECK: Supple. CHEST: Clear. HEART: Regular rate and rhythm. ABDOMEN: Soft. Good bowel sounds. He has some mild tenderness to deep palpation in the epigastric area but no masses or rebound. EXTREMITIES: Warm, good distal pulses. No edema. NEUROLOGIC: He is grossly intact and alert and oriented x3. LABORATORY DATA: On admission, lipase of 40,000, today it is 7600. Amylase is down to 984. He had some slight elevation of his transaminases on admission with an AST of 74 and ALT of 89, these have returned to normal. Total bilirubin today was 0.6 with direct of 0.2. Imaging of his abdomen included an ultrasound which showed cholelithiasis but no evidence of acute cholecystitis. There was question of some borderline dilatation of his common bile duct and CT angiogram revealed acute pancreatitis. There was also 1.3 cm solid right renal lesion of unclear etiology. IMPRESSION: A 71-year-old gentleman with pancreatitis, most likely related to gallstones. It is reassuring that his liver enzymes are currently normal, and therefore, it does not appear that he has obstructive choledocholithiasis. He certainly is still dry and I would like to give him another liter of fluids, though his BUN and creatinine looked good at 12 and 1 and his hemoglobin dropped appropriately from 15 to 12.3 with aggressive hydration, though it appears he could use another liter and continue on his maintenance hydration as well. He will remain n.p.o. I think it is reasonable for him to consider surgery once his pancreatitis has resolved to have his gallbladder removed given the fact that he has gallstones and that this most likely was related to gallstone disease. As far as the renal lesion, this should be followed up by nephrology. I would like to thank you for this consult. GABY
--- NOTE | 2017-05-01 22:10 | Urology Consultation ---
History General Date of Service: May 01, 2017. Primary Care Physician: Lakia Roper D.O. Pt seen a urologist before?: No History of Present Illness 71 y/o Male admitted with pancreatitis. During work up, CT scan was performed with showed a 1.3cm right renal mass concerning for renal cell carcinoma. Pt denies any fam hx of RCC. No hematuria. No dysuria. No flank pain. Never has seen a urologist in the past. Voiding well. No urge or freq. Slower stream. Occ nocturia. No past images to compare. Imaging Imaging: CT Laboratory Labs were reviewed and are within normal limits unless listed below. Labs are available in the chart and at [facility] Past History no pertinent history Social History Hx Tobacco Use In Past Year?: No Marital status: History of MDRO No Allergies Coded Allergies: No Known Allergies (Unverified , 04/30/17) Medications Home Medications: Home Meds and Scripts Medications Dose Route/Sig Max Daily Dose Days Date Category Bystolic (Nebivolol Hcl) 5 Mg Tab 5 Mg PO QPM 04/30/17 Reported Losartan Potassium 50 Mg Tab 50 Mg PO QPM 04/30/17 Reported Zocor (Simvastatin) 20 Mg Tab 20 Mg PO QPM 04/30/17 Reported Protonix (Pantoprazole Sodium) 40 Mg Tab 40 Mg PO DAILY 05/26/13 Reported Aspirin Chewable (Aspirin) 81 Mg Chew 81 Mg PO DAILY 05/26/13 Reported Allopurinol 100 Mg Tab 100 Mg PO DAILY 05/26/13 Reported Inpatient Medications: Current Inpatient Medications Medications (Trade) Dose Ordered Sig/Kylie Route Start Time Stop Time Status Last Admin Dose Admin Ioversol (Optiray 320) 100 ml UD PRN IV 04/30/17 13:45 05/04/17 13:44 Lactated Ringer's 1,000 ml @ 200 mls/hr Q5H IV 04/30/17 18:45 05/30/17 18:44 05/01/17 19:01 200 MLS/HR Ondansetron HCl (Zofran Inj) 4 mg Q4H PRN IV 04/30/17 17:15 05/30/17 17:14 05/01/17 19:01 4 MG Hydromorphone HCl (Dilaudid Inj) 1 mg Q3H PRN IV 04/30/17 17:15 05/14/17 17:14 05/01/17 19:02 1 MG Lorazepam 1 mg/ Syringe 1 ml @ 1 mls/min Q6 PRN IV 04/30/17 18:45 05/30/17 18:44 05/01/17 16:21 1 MLS/MIN Allopurinol (Zyloprim Tab) 100 mg DAILY PO 05/02/17 09:00 06/01/17 08:59 Pantoprazole Sodium (Protonix Tab) 40 mg DAILY PO 05/02/17 09:00 06/01/17 08:59 Nebivolol (Bystolic Tab) 5 mg QPM PO 05/01/17 21:00 05/31/17 20:59 05/01/17 19:02 5 MG Review of Systems Review of Systems All Other Systems: Reviewed and Negative Physical Exam Vital Signs: Vital Signs Past 12 Hours Date Time Temp Pulse Resp B/P (MAP) Pulse Ox O2 Delivery O2 Flow Rate FiO2 05/01/17 20:00 Room Air 05/01/17 16:10 95 Room Air 05/01/17 14:59 36.4 62 18 116/70 (85) 95 Room Air Physical Exam: General Appearance: WD/WN ENT: normal ENT inspection Neck: no adenopathy Respiratory/Chest: chest non-tender Cardiovascular: regular rate, rhythm Extremities: non-tender Neurologic/Psychiatric: alert Skin: normal color Lymphatic: no adenopathy Assessment & Plan Assessment & Plan (1) Renal mass (2) Acute pancreatitis Right renal mass. Concerning for RCC. Would rec F/U MRI to further define. Can be performed as an outpatient in the next 1-2 mos. Reviewed findings with patient.
[2017-05-01 22:51] VITALS: BP 115/66; PULSE 63; TEMP 37.6; O2SAT 92
[2017-05-02] MEDS: LACTATED RINGER'S 1000ML 1,000 ML IV SCH ×4 (04:14→21:25)
[2017-05-02 05:01] VITALS: TEMP 36.9
[2017-05-02 05:55] LABS: HEMATOCRIT 33.2 % (42-52); HEMOGLOBIN 11.3 g/dL (14.0-18.0); MEAN CELL VOLUME 85.3 fL (80-100); MEAN PLATELET VOLUME 9.5 fL (7.4-10.4); PLATELET COUNT 159 K/uL (130-400); RED CELL DISTRIBUTION WIDTH CV 13.7 % (11.5-14.5); RED CELL DISTRIBUTION WIDTH SD 42.6 fL (36.4-46.3); WHITE BLOOD COUNT 7.74 K/uL (4.8-10.8)
[2017-05-02 06:23] LABS: CALCIUM 8.3 mg/dl (8.5-10.1); CREATININE 0.88 mg/dl (0.60-1.40); POTASSIUM 3.7 mmol/L (3.5-5.1)
[2017-05-02 06:26] LABS: TOTAL PROTEIN 5.9 gm/dl (6.4-8.2)
[2017-05-02 07:15] VITALS: BP 125/70; PULSE 84; TEMP 37; O2SAT 97
[2017-05-02] MEDS: ALLOPURINOL 100 MG TAB PO SCH (08:19)
[2017-05-02] MEDS: PANTOprazole SOD 40 MG TAB PO SCH (08:19)
--- NOTE | 2017-05-02 08:26 | Progress Note ---
Medicine Progress Note Date & Time of Visit: May 02, 2017 at 08:22. Subjective resting in bed, sleeping but easily rousable states he feels improved less abdominal pain, about 2/10 no nausea, fever/chills, shortness of breath had 1 BM this morning no problems with urination no other symptoms Objective Last 8 Hrs Date Time Temp Pulse Resp B/P (MAP) Pulse Ox O2 Delivery O2 Flow Rate FiO2 05/02/17 07:15 37.0 84 18 125/70 (88) 97 Room Air 05/02/17 05:01 36.9 Physical Exam: General- oriented x 3, not in distress, speaks in sentences with no effort Eyes- anicteric Neck- supple, no JVD Lungs- clear breath sounds bilaterally, no rales/wheezes Heart- regular rhythm; no murmur, normal rate Abdomen- normal bowel sounds, soft, mild epigastric tenderness, non distended Extremities- no pretibial edema, no calf tenderness; peripheral pulses intact Neuro- alert, oriented x 3; no gross focal deficits Skin- warm & dry Laboratory Results: Last 24 Hours Test 05/02/17 05:32 White Blood Count 7.74 K/uL Red Blood Count 3.89 M/uL Hemoglobin 11.3 g/dL Hematocrit 33.2 % Mean Corpuscular Volume 85.3 fL Mean Corpuscular Hemoglobin 29.0 pg Mean Corpuscular Hemoglobin Concent 34.0 g/dl RDW Standard Deviation 42.6 fL RDW Coefficient of Variation 13.7 % Platelet Count 159 K/uL Mean Platelet Volume 9.5 fL Sodium Level 138 mmol/L Potassium Level 3.7 mmol/L Chloride Level 104 mmol/L Carbon Dioxide Level 28 mmol/L Anion Gap 6.0 mmol/L Blood Urea Nitrogen 11 mg/dl Creatinine 0.88 mg/dl Est Creatinine Clear Calc Drug Dose 109.1 ml/min Estimated GFR () 101.6 Estimated GFR (Non- 87.6 BUN/Creatinine Ratio 12.1 Random Glucose 88 mg/dl Calcium Level 8.3 mg/dl Total Bilirubin 0.7 mg/dl Direct Bilirubin 0.2 mg/dl Aspartate Amino Transf (AST/SGOT) 22 U/L Alanine Aminotransferase (ALT/SGPT) 42 U/L Alkaline Phosphatase 32 U/L Total Protein 5.9 gm/dl Albumin 3.0 gm/dl Globulin 2.9 gm/dl Albumin/Globulin Ratio 1.0 Amylase Level 206 U/L Lipase 759 U/L Assessment & Plan 71 year old male with history of HTN, HLD presenting with abdominal pain ACUTE PANCREATITIS possible GALLSTONE RELATED presented with abdominal pain for [address] abdomen /pelvis shows : Acute pancreatitis. No peripancreatic fluid collections Abdominal USG : 1. Cholelithiasis. No sonographic evidence of acute cholecystitis. 2. Partially obscured pancreas. 3. Borderline dilatation of the common bile duct. No common bile duct calculi identified by sonography. Lipase level elevated > 40 K --> improved to 7000s--> further improved to 700s LFTs normalized MRCP: IMPRESSION: 1. Cholelithiasis with gallbladder wall thickening/edema. In the setting of right upper quadrant abdominal pain, this could indicate acute cholecystitis. If clinically indicated, correlation with a nuclear medicine hepatobiliary scan could be obtained to assess cystic duct patency 2. No evidence of ductal dilatation. 3. No common bile duct calculi identified GI consulted Continue NPO for now Continue IV LR 200cc/hr Will need Cholecystectomy when stable RENAL MASS : incidental finding in CT abdomen A 1.3 cm solid right renal mass. This is suspicious for renal cell carcinoma. This can be confirmed with follow-up dedicated renal MRI. -- Urology consulted suspicious for renal cell CA ff up Renal MRI in 1 month outpatient Urology ff up HTN : - BP stable continue Nebivolol hold Losartan - monitor HX OF PVC /PREMATURE VENTRICULAR CONTRACTION : follows with Cardiology Dr Owens had recent Holter monitor - continue Nebivolol HYPERLIPIDEMIA : hold statin for ac pancreatitis HYPOTHYROIDISM : continue Lthyroxine DVT proph SCDs Encourage to ambulate Dispo anticipate d/c home when medically stable Current Inpatient Medications: Current Inpatient Medications Medications (Trade) Dose Ordered Sig/Kylie Route Start Time Stop Time Status Last Admin Dose Admin Ioversol (Optiray 320) 100 ml UD PRN IV 04/30/17 13:45 05/04/17 13:44 Lactated Ringer's 1,000 ml @ 200 mls/hr Q5H IV 04/30/17 18:45 05/30/17 18:44 05/02/17 04:14 200 MLS/HR Ondansetron HCl (Zofran Inj) 4 mg Q4H PRN IV 04/30/17 17:15 05/30/17 17:14 2/24/18 19:01 4 MG Hydromorphone HCl (Dilaudid Inj) 1 mg Q3H PRN IV 04/30/17 17:15 05/14/17 17:14 05/01/17 19:02 1 MG Lorazepam 1 mg/ Syringe 1 ml @ 1 mls/min Q6 PRN IV 04/30/17 18:45 05/30/17 18:44 05/01/17 16:21 1 MLS/MIN Allopurinol (Zyloprim Tab) 100 mg DAILY PO 05/02/17 09:00 06/01/17 08:59 05/02/17 08:19 100 MG Pantoprazole Sodium (Protonix Tab) 40 mg DAILY PO 05/02/17 09:00 06/01/17 08:59 05/02/17 08:19 40 MG Nebivolol (Bystolic Tab) 5 mg QPM PO 05/01/17 21:00 05/31/17 20:59 05/01/17 19:02 5 MG
[2017-05-02] MEDS: ONDANSETRON INJ 2 MG/ML 2 ML VIAL IV PRN (12:42)
[2017-05-02] MEDS: HYDROmorphone INJ 1 MG/ML SYR IV PRN (12:43)
--- NOTE | 2017-05-02 14:00 | GASTROENTEROLOGY PROGRESS NOTE ---
DATE: 05/02/2017 HISTORY OF PRESENT ILLNESS: Mr. Lim is doing much better today, though he needed to have a nausea medication and a little pain medication because he felt a little more bloating and discomfort, though this was the first time we requested this kind of medicines since last evening. He also had a bowel movement. He denies fevers. He has been able to ambulate. He is not hungry, but he is desiring some carito kait and small amount of liquids. PHYSICAL EXAMINATION: VITAL SIGNS: Today, his most recent temperature is 37, pulse is 84, blood pressure is 125/70. SKIN: Anicteric. EYES: Show anicteric sclerae. MOUTH: Clear of lesions. CHEST: Clear. HEART: Regular rate and rhythm. ABDOMEN: Soft, less tenderness. Good bowel sounds. No rebound. NEUROLOGIC: He is alert and oriented x3. LABORATORY DATA: Show white blood cell count of 7.7 and his lipase is down from yesterday of 7000 down to 759. Amylase is 206. IMPRESSION AND PLAN: Improving pancreatitis most likely related to gallstone disease. I think it is reasonable to give him clears today and see how he tolerates this, though I have informed him to let us know and to stop, if he has any exacerbation of his symptoms. I would not advance his diet at this point until he shows significant improvement tomorrow. I have also encouraged him to continue to ambulate and walk around the halls. GABY
[2017-05-02 15:54] VITALS: BP 99/53; PULSE 51; TEMP 37.1; O2SAT 96
[2017-05-02 16:49] VITALS: O2SAT 97
[2017-05-02] MEDS: NEBIVOLOL HCL 5 MG TAB PO SCH (21:25)
[2017-05-02 22:09] VITALS: BP 130/66; PULSE 56; TEMP 36.7; O2SAT 94
[2017-05-03] MEDS: LACTATED RINGER'S 1000ML 1,000 ML IV SCH ×5 (00:11→17:56)
[2017-05-03 07:37] LABS: HEMATOCRIT 33.9 % (42-52); HEMOGLOBIN 11.7 g/dL (14.0-18.0); MEAN CELL VOLUME 84.5 fL (80-100); MEAN CORPUSCULAR HEMOGLOBIN 29.2 pg (25-34); MEAN CORPUSCULAR HGB CONC 34.5 g/dl (32-36); MEAN PLATELET VOLUME 9.6 fL (7.4-10.4); PLATELET COUNT 166 K/uL (130-400); RED CELL DISTRIBUTION WIDTH CV 13.4 % (11.5-14.5); RED CELL DISTRIBUTION WIDTH SD 41.5 fL (36.4-46.3); WHITE BLOOD COUNT 6.42 K/uL (4.8-10.8)
[2017-05-03 07:55] VITALS: BP 152/80; PULSE 47; TEMP 37.1; O2SAT 93
[2017-05-03 08:02] LABS: ALBUMIN 2.9 gm/dl (3.4-5.0); CALCIUM 8.4 mg/dl (8.5-10.1); CREATININE 0.83 mg/dl (0.60-1.40); POTASSIUM 3.6 mmol/L (3.5-5.1)
[2017-05-03] MEDS: PANTOprazole SOD 40 MG TAB PO SCH (08:19)
[2017-05-03] MEDS: ALLOPURINOL 100 MG TAB PO SCH (08:19)
--- NOTE | 2017-05-03 08:48 | Gastroenterology Progress Note ---
Progress Note Date of Service: May 03, 2017 Subjective Pt evaluation today including: conversation w/ patient Pt is seen and evaluated, chart reviewed. Admitted for abd pain, nausea without vomiting. Imaging concerning for gallstones and acute pancreatitis. LFTs WNL, lipase and amylase significantly elevated. Has been NPO for bowel rest of 200 ml IVF w/ > 2 pt drop in H&H. He notes improvement of his symptoms, no longer having abd pain, nausea or vomiting. Does have some bloating. Has been tolerating clears. No lower abd pain. Moved his bowels yesterday, no black or bloody stools. No fever, chills, No CP, SOB. MRCP 05/01/17: Cholelithiasis with gallbladder wall thickening/edema. In the setting ofright upper quadrant abdominal pain, this could indicate acute cholecystitis. If clinically indicated, correlation with a nuclear medicine hepatobiliary scan could be obtained to assess cystic duct patencyNo evidence of ductal dilatation.No common bile duct calculi identified RUQ US 04/30/17: Cholelithiasis. No sonographic evidence of acute cholecystitis. Partially obscured pancreas. Borderline dilatation of the common bile duct. No common bile duct calculi identified by sonography. Review of Systems Constitutional: No fever, No chills, No sweats, No weight loss, No weakness, No fatigue ENT: No hearing loss Respiratory: No cough, No shortness of breath Cardiac: No chest pain, No edema Abdomen: + problem reported (bloating), No pain, No nausea, No vomiting, No diarrhea, No constipation, No GI bleeding Male : No dysuria Neuro: No weakness Heme: No abnormal bleeding/bruising Endo: + excessive urination, No fatigue, No excessive thirst Medications Current Inpatient Medications Medications (Trade) Dose Ordered Sig/Kylie Route Start Time Stop Time Status Last Admin Dose Admin Ioversol (Optiray 320) 100 ml UD PRN IV 04/30/17 13:45 05/04/17 13:44 Lactated Ringer's 1,000 ml @ 200 mls/hr Q5H IV 04/30/17 18:45 05/30/17 18:44 05/03/17 07:34 200 MLS/HR Ondansetron HCl (Zofran Inj) 4 mg Q4H PRN IV 04/30/17 17:15 05/30/17 17:14 05/02/17 12:42 4 MG Hydromorphone HCl (Dilaudid Inj) 1 mg Q3H PRN IV 04/30/17 17:15 05/14/17 17:14 05/02/17 12:43 1 MG Lorazepam 1 mg/ Syringe 1 ml @ 1 mls/min Q6 PRN IV 04/30/17 18:45 05/30/17 18:44 05/01/17 16:21 1 MLS/MIN Allopurinol (Zyloprim Tab) 100 mg DAILY PO 05/02/17 09:00 06/01/17 08:59 05/03/17 08:19 100 MG Pantoprazole Sodium (Protonix Tab) 40 mg DAILY PO 05/02/17 09:00 06/01/17 08:59 05/03/17 08:19 40 MG Nebivolol (Bystolic Tab) 5 mg QPM PO 05/01/17 21:00 05/31/17 20:59 05/02/17 21:25 5 MG Objective Vital Signs Date Time Temp Pulse Resp B/P (MAP) Pulse Ox O2 Delivery O2 Flow Rate FiO2 05/03/17 08:00 Room Air 05/03/17 07:55 37.1 47 18 152/80 (104) 93 Room Air 05/03/17 00:00 Room Air 05/02/17 22:09 36.7 56 20 130/66 (87) 94 Room Air 05/02/17 16:49 97 Room Air 05/02/17 15:54 37.1 51 18 99/53 (68) 96 Room Air Physical Exam General Appearance: no apparent distress Eyes: PERRL ENT: hearing grossly normal Neck: supple Respiratory/Chest: lungs clear, normal breath sounds Cardiovascular: regular rate, rhythm, no murmur Abdomen: normal bowel sounds, non tender, soft, no organomegaly, no pulsatile mass Neurologic/Psych: alert, normal mood/affect, oriented x 3 Skin: normal color Laboratory Results Last 24 Hours Test 05/03/17 07:18 White Blood Count 6.42 K/uL Red Blood Count 4.01 M/uL Hemoglobin 11.7 g/dL Hematocrit 33.9 % Mean Corpuscular Volume 84.5 fL Mean Corpuscular Hemoglobin 29.2 pg Mean Corpuscular Hemoglobin Concent 34.5 g/dl RDW Standard Deviation 41.5 fL RDW Coefficient of Variation 13.4 % Platelet Count 166 K/uL Mean Platelet Volume 9.6 fL Sodium Level 141 mmol/L Potassium Level 3.6 mmol/L Chloride Level 105 mmol/L Carbon Dioxide Level 29 mmol/L Anion Gap 7.0 mmol/L Blood Urea Nitrogen 8 mg/dl Creatinine 0.83 mg/dl Est Creatinine Clear Calc Drug Dose 115.7 ml/min Estimated GFR () 104.1 Estimated GFR (Non- 89.8 BUN/Creatinine Ratio 9.8 Random Glucose 90 mg/dl Calcium Level 8.4 mg/dl Total Bilirubin 0.7 mg/dl Direct Bilirubin 0.2 mg/dl Aspartate Amino Transf (AST/SGOT) 20 U/L Alanine Aminotransferase (ALT/SGPT) 35 U/L Alkaline Phosphatase 31 U/L Total Protein 6.0 gm/dl Albumin 2.9 gm/dl Globulin 3.1 gm/dl Albumin/Globulin Ratio 0.9 Amylase Level 146 U/L Lipase 1167 U/L Assessment and Plan 71 year old male with gallstone pancreatitis, clinically improving and tolerating clear liquid. Would like dietary advancement. No abdominal pain, nausea vomiting. - antiemetics PRN - analgesia PRN - advance to low fat diet as tolerated - If any pain return please back down - outpatient general surgery consult GI to follow, please call with any questions or concerns. ATTESTATION: I have performed a history and physical examination of this patient and reviewed the electronic record. Specifically, on physical examination there is minimal tenderness to deep epigastric palpation. I have discussed the case with MIKE Granger. The above note reflects my findings, conclusions, and recommendations. Onesimo Prince MD
[2017-05-03 15:45] VITALS: BP 123/71; PULSE 51; TEMP 37; O2SAT 93
[2017-05-03 16:00] VITALS: O2SAT 93
--- NOTE | 2017-05-03 17:54 | Progress Note ---
Medicine Progress Note Date & Time of Visit: May 03, 2017 at 17:54. Subjective seen resting in bed, comfortable family visiting started low fat diet, tolerating well so far, no nausea, no abdominal pain did have 2 loose BMs today no other symptoms Objective Last 8 Hrs Date Time Temp Pulse Resp B/P (MAP) Pulse Ox O2 Delivery O2 Flow Rate FiO2 05/03/17 16:00 93 Room Air 05/03/17 15:45 37.0 51 18 123/71 (88) 93 Room Air Physical Exam: General- oriented x 3, not in distress, speaks in sentences with no effort Eyes- anicteric Neck- no JVD Lungs- clear breath sounds bilaterally, no rales/wheezes Heart- regular rhythm; no murmur, normal rate Abdomen- normal bowel sounds, soft, no tenderness, non distended Extremities- no pretibial edema, no calf tenderness Neuro- alert, oriented x 3; no gross focal deficits Skin- warm & dry Laboratory Results: Last 24 Hours Test 05/03/17 07:18 White Blood Count 6.42 K/uL Red Blood Count 4.01 M/uL Hemoglobin 11.7 g/dL Hematocrit 33.9 % Mean Corpuscular Volume 84.5 fL Mean Corpuscular Hemoglobin 29.2 pg Mean Corpuscular Hemoglobin Concent 34.5 g/dl RDW Standard Deviation 41.5 fL RDW Coefficient of Variation 13.4 % Platelet Count 166 K/uL Mean Platelet Volume 9.6 fL Sodium Level 141 mmol/L Potassium Level 3.6 mmol/L Chloride Level 105 mmol/L Carbon Dioxide Level 29 mmol/L Anion Gap 7.0 mmol/L Blood Urea Nitrogen 8 mg/dl Creatinine 0.83 mg/dl Est Creatinine Clear Calc Drug Dose 115.7 ml/min Estimated GFR () 104.1 Estimated GFR (Non- 89.8 BUN/Creatinine Ratio 9.8 Random Glucose 90 mg/dl Calcium Level 8.4 mg/dl Total Bilirubin 0.7 mg/dl Direct Bilirubin 0.2 mg/dl Aspartate Amino Transf (AST/SGOT) 20 U/L Alanine Aminotransferase (ALT/SGPT) 35 U/L Alkaline Phosphatase 31 U/L Total Protein 6.0 gm/dl Albumin 2.9 gm/dl Globulin 3.1 gm/dl Albumin/Globulin Ratio 0.9 Amylase Level 146 U/L Lipase 1167 U/L Assessment & Plan 71 year old male with history of HTN, HLD presenting with abdominal pain ACUTE PANCREATITIS possible GALLSTONE RELATED presented with abdominal pain for [address] abdomen /pelvis shows : Acute pancreatitis. No peripancreatic fluid collections Abdominal USG : 1. Cholelithiasis. No sonographic evidence of acute cholecystitis. 2. Partially obscured pancreas. 3. Borderline dilatation of the common bile duct. No common bile duct calculi identified by sonography. Lipase level elevated > 40 K --> improved to 7000s--> further improved to 700s LFTs normalized MRCP: IMPRESSION: 1. Cholelithiasis with gallbladder wall thickening/edema. In the setting of right upper quadrant abdominal pain, this could indicate acute cholecystitis. If clinically indicated, correlation with a nuclear medicine hepatobiliary scan could be obtained to assess cystic duct patency 2. No evidence of ductal dilatation. 3. No common bile duct calculi identified -- lipase slightly elevated but no abdominal pain, nausea tolerating low fat diet had 2 episodes of diarrhea, if >3, check C diff -- decrease LR to 80cc/hr discussed with Dr. Prince, recommend to consult Dr. Bruner for possible cholecystectomy RENAL MASS : incidental finding in CT abdomen A 1.3 cm solid right renal mass. This is suspicious for renal cell carcinoma. This can be confirmed with follow-up dedicated renal MRI. -- Urology consulted Dr. Carranza suspicious for renal cell CA ff up Renal MRI in 1 month outpatient Urology ff up HTN - BP stable continue Nebivolol hold Losartan (need to check with GI if patient can resume Losartan and Simvastatin- possible contributors to pancreatitis?) HX OF PVC /PREMATURE VENTRICULAR CONTRACTION follows with Cardiology Dr Owens had recent Holter monitor - continue Nebivolol HYPERLIPIDEMIA hold statin for acute pancreatitis HYPOTHYROIDISM continue Lthyroxine DVT proph SCDs Encourage to ambulate Dispo anticipate d/c home when medically stable, cleared by GI and Gen Surg Current Inpatient Medications: Current Inpatient Medications Medications (Trade) Dose Ordered Sig/Kylie Route Start Time Stop Time Status Last Admin Dose Admin Ioversol (Optiray 320) 100 ml UD PRN IV 04/30/17 13:45 05/04/17 13:44 Lactated Ringer's 1,000 ml @ 200 mls/hr Q5H IV 04/30/17 18:45 05/30/17 18:44 05/03/17 12:02 200 MLS/HR Ondansetron HCl (Zofran Inj) 4 mg Q4H PRN IV 04/30/17 17:15 05/30/17 17:14 05/02/17 12:42 4 MG Hydromorphone HCl (Dilaudid Inj) 1 mg Q3H PRN IV 04/30/17 17:15 05/14/17 17:14 05/02/17 12:43 1 MG Lorazepam 1 mg/ Syringe 1 ml @ 1 mls/min Q6 PRN IV 04/30/17 18:45 05/30/17 18:44 05/01/17 16:21 1 MLS/MIN Allopurinol (Zyloprim Tab) 100 mg DAILY PO 05/02/17 09:00 06/01/17 08:59 05/03/17 08:19 100 MG Pantoprazole Sodium (Protonix Tab) 40 mg DAILY PO 05/02/17 09:00 06/01/17 08:59 05/03/17 08:19 40 MG Nebivolol (Bystolic Tab) 5 mg QPM PO 05/01/17 21:00 05/31/17 20:59 05/02/17 21:25 5 MG Loperamide HCl (Imodium Cap) 2 mg UD PRN PO 05/03/17 18:00 06/02/17 17:59 UNV
[2017-05-03] MEDS ORDERED: LOPERAMIDE HCL 2 MG CAP PO PRN (18:00)
[2017-05-03] MEDS: NEBIVOLOL HCL 5 MG TAB PO SCH (20:31)
[2017-05-04 00:10] VITALS: BP 158/86; PULSE 55; TEMP 36.6; O2SAT 92
[2017-05-04] MEDS: LACTATED RINGER'S 1000ML 1,000 ML IV SCH ×2 (00:42→12:00)
[2017-05-04 07:00] VITALS: BP 144/80; PULSE 45; TEMP 36.8; O2SAT 92
[2017-05-04 07:34] LABS: HEMATOCRIT 35.7 % (42-52); HEMOGLOBIN 12.3 g/dL (14.0-18.0); MEAN CORPUSCULAR HEMOGLOBIN 28.9 pg (25-34); MEAN CORPUSCULAR HGB CONC 34.5 g/dl (32-36); MEAN PLATELET VOLUME 9.6 fL (7.4-10.4); PLATELET COUNT 222 K/uL (130-400); RED CELL DISTRIBUTION WIDTH CV 13.4 % (11.5-14.5); RED CELL DISTRIBUTION WIDTH SD 40.3 fL (36.4-46.3)
[2017-05-04] MEDS: ALLOPURINOL 100 MG TAB PO SCH (08:28)
[2017-05-04] MEDS: PANTOprazole SOD 40 MG TAB PO SCH (08:28)
--- NOTE | 2017-05-04 11:50 | Gastroenterology Progress Note ---
Progress Note Date of Service: May 04, 2017 Subjective Pt evaluation today including: conversation w/ patient, physical exam, chart review, lab review Pt was seen and evaluated, chart reviewed. No acute changes. Had dietary advancement last night, tolerated well. No abdominal pain, nausea, vomiting. Does have bloating. No fever, chills, CP, SOB. MRCP 05/01/17: Cholelithiasis with gallbladder wall thickening/edema. In the setting ofright upper quadrant abdominal pain, this could indicate acute cholecystitis. If clinically indicated, correlation with a nuclear medicine hepatobiliary scan could be obtained to assess cystic duct patencyNo evidence of ductal dilatation.No common bile duct calculi identified RUQ US 04/30/17: Cholelithiasis. No sonographic evidence of acute cholecystitis. Partially obscured pancreas. Borderline dilatation of the common bile duct. No common bile duct calculi identified by sonography. Review of Systems Constitutional: No fever, No chills, No weight loss, No weakness Respiratory: No cough, No sputum, No shortness of breath, No dyspnea on exertion Cardiac: No chest pain, No edema, No palpitations Abdomen: No pain, No nausea, No vomiting, No diarrhea, No constipation, No GI bleeding, No dysphagia, No odynophagia Skin: No rash, No itch, No color change, No bleeding Medications Current Inpatient Medications Medications (Trade) Dose Ordered Sig/Kylie Route Start Time Stop Time Status Last Admin Dose Admin Ioversol (Optiray 320) 100 ml UD PRN IV 04/30/17 13:45 05/04/17 13:44 Lactated Ringer's 1,000 ml @ 80 mls/hr [id number] IV 04/30/17 18:45 05/30/17 18:44 05/04/17 00:42 80 MLS/HR Ondansetron HCl (Zofran Inj) 4 mg Q4H PRN IV 04/30/17 17:15 05/30/17 17:14 05/02/17 12:42 4 MG Hydromorphone HCl (Dilaudid Inj) 1 mg Q3H PRN IV 04/30/17 17:15 05/14/17 17:14 05/02/17 12:43 1 MG Lorazepam 1 mg/ Syringe 1 ml @ 1 mls/min Q6 PRN IV 04/30/17 18:45 05/30/17 18:44 05/01/17 16:21 1 MLS/MIN Allopurinol (Zyloprim Tab) 100 mg DAILY PO 05/02/17 09:00 06/01/17 08:59 05/04/17 08:28 100 MG Pantoprazole Sodium (Protonix Tab) 40 mg DAILY PO 05/02/17 09:00 06/01/17 08:59 05/04/17 08:28 40 MG Nebivolol (Bystolic Tab) 5 mg QPM PO 05/01/17 21:00 05/31/17 20:59 05/03/17 20:31 5 MG Loperamide HCl (Imodium Cap) 2 mg PRN PRN PO 05/03/17 18:00 06/02/17 17:59 Objective Vital Signs Date Time Temp Pulse Resp B/P (MAP) Pulse Ox O2 Delivery O2 Flow Rate FiO2 05/04/17 08:00 Room Air 05/04/17 07:00 36.8 45 18 144/80 (101) 92 Room Air 05/04/17 00:10 36.6 55 16 158/86 (110) 92 Room Air 05/04/17 00:00 Room Air 05/03/17 16:00 93 Room Air 05/03/17 15:45 37.0 51 18 123/71 (88) 93 Room Air Physical Exam General Appearance: no apparent distress Eyes: PERRL ENT: hearing grossly normal Neck: supple, no adenopathy, no carotid bruits, trachea midline Respiratory/Chest: lungs clear, normal breath sounds, no respiratory distress, no accessory muscle use Cardiovascular: regular rate, rhythm, no edema, no gallop, no JVD Abdomen: normal bowel sounds, non tender, soft, no organomegaly, no pulsatile mass Neurologic/Psych: alert, normal mood/affect, oriented x 3 Skin: normal color, no jaundice, warm/dry, no rash Laboratory Results Last 24 Hours Test 05/04/17 07:02 White Blood Count 6.30 K/uL Red Blood Count 4.25 M/uL Hemoglobin 12.3 g/dL Hematocrit 35.7 % Mean Corpuscular Volume 84.0 fL Mean Corpuscular Hemoglobin 28.9 pg Mean Corpuscular Hemoglobin Concent 34.5 g/dl RDW Standard Deviation 40.3 fL RDW Coefficient of Variation 13.4 % Platelet Count 222 K/uL Mean Platelet Volume 9.6 fL Assessment and Plan 71 year old male with gallstone pancreatitis, clinically improving and tolerating clear liquid. Would like dietary advancement. No abdominal pain, nausea vomiting. - antiemetics PRN - analgesia PRN - advance to low fat diet as tolerated - If any pain return please back down - cholecystectomy per surgery GI to sign off. No GI contraindication to discharge. Please call with any questions or concerns. ATTESTATION: I have performed a history and physical examination of this patient and reviewed the electronic record. Specifically, on physical examination there is minimal epigastric tenderness. I have discussed the case with MIKE Granger. The above note reflects my findings, conclusions, and recommendations. Onesimo Prince MD
--- NOTE | 2017-05-04 12:18 | Medical Consult ---
Consultation Date of Consultation: May 04, 2017. Attending Physician: Adolfo Delgado MD Reason for Consultation: Gallstone Pancreatitis History of Present Illness Pleasant 71-year-old male- family well-know to Dr. Bruner. General surgery consult placed for gallstone pancreatitis. Patient states that he was working in [place] and developed acute abdominal pain with accompanied nausea while sitting in a meeting. He states that the abdominal pain persisted and so he returned home to [place]. The abdominal pain was located in the epigastric region and radiated across the upper abdomen and then around to his back. He reports that he doesn't normally eat a diet high in fatty foods, but it is normal a heavily processed foods diet. He has a strong family history of gallbladder issues. CT of the abdomen and pelvis reveals acute pancreatitis. Lipase was elevated on admission at over 40K, it has been slowly trending down. Today, lipase was elevated at just over 1100. Gallbladder ultrasound reveals cholelithiasis. No sonographic evidence of acute cholecystitis. Borderline dilatation of the CBD. No common bile duct calculi. Patient reports that abdominal pain has greatly improved since admission. Nausea has resolved. Patient is tolerating low fat diet at this time. Social History Smoking Status: Never Smoker Marital Status: Housing Status: lives with significant other Allergies Coded Allergies: No Known Allergies (Unverified , 04/30/17) Current Inpatient Medications Current Inpatient Medications Medications (Trade) Dose Ordered Sig/Kylie Route Start Time Stop Time Status Last Admin Dose Admin Ioversol (Optiray 320) 100 ml UD PRN IV 04/30/17 13:45 05/04/17 13:44 Lactated Ringer's 1,000 ml @ 80 mls/hr [id number] IV 04/30/17 18:45 05/30/17 18:44 05/04/17 00:42 80 MLS/HR Ondansetron HCl (Zofran Inj) 4 mg Q4H PRN IV 04/30/17 17:15 05/30/17 17:14 05/02/17 12:42 4 MG Hydromorphone HCl (Dilaudid Inj) 1 mg Q3H PRN IV 04/30/17 17:15 05/14/17 17:14 05/02/17 12:43 1 MG Lorazepam 1 mg/ Syringe 1 ml @ 1 mls/min Q6 PRN IV 04/30/17 18:45 05/30/17 18:44 05/01/17 16:21 1 MLS/MIN Allopurinol (Zyloprim Tab) 100 mg DAILY PO 05/02/17 09:00 06/01/17 08:59 05/04/17 08:28 100 MG Pantoprazole Sodium (Protonix Tab) 40 mg DAILY PO 05/02/17 09:00 06/01/17 08:59 05/04/17 08:28 40 MG Nebivolol (Bystolic Tab) 5 mg QPM PO 05/01/17 21:00 05/31/17 20:59 05/03/17 20:31 5 MG Loperamide HCl (Imodium Cap) 2 mg PRN PRN PO 05/03/17 18:00 06/02/17 17:59 Review of Systems Constitutional: No fever, No chills Abdomen: + pain, + diarrhea, No nausea Physical Exam Date Time Temp Pulse Resp B/P (MAP) Pulse Ox O2 Delivery O2 Flow Rate FiO2 05/04/17 08:00 Room Air 05/04/17 07:00 36.8 45 18 144/80 (101) 92 Room Air 05/04/17 00:10 36.6 55 16 158/86 (110) 92 Room Air 05/04/17 00:00 Room Air 05/03/17 16:00 93 Room Air 05/03/17 15:45 37.0 51 18 123/71 (88) 93 Room Air General Appearance: WD/WN, no apparent distress Abdomen/GI: soft, + tenderness (improving since admission ), + pertinent finding Skin: normal color, warm/dry, no rash Laboratory Results Last 24 Hours Test 05/04/17 07:02 White Blood Count 6.30 K/uL Red Blood Count 4.25 M/uL Hemoglobin 12.3 g/dL Hematocrit 35.7 % Mean Corpuscular Volume 84.0 fL Mean Corpuscular Hemoglobin 28.9 pg Mean Corpuscular Hemoglobin Concent 34.5 g/dl RDW Standard Deviation 40.3 fL RDW Coefficient of Variation 13.4 % Platelet Count 222 K/uL Mean Platelet Volume 9.6 fL Assessment & Plan 05/04/17- 71 year-old male with most likely gallstone pancreatitis. In addition , a 1.3 cm solid right renal mass was detected on CT- Urology on board- Renal MRI in 1 month planned. Patient seen and examined with Dr. Bruner. Lipase improving. Abdominal pain improved since admission. Recommend Laparoscopic Cholecystectomy, Possible Open Cholecystectomy with Intraoperative Cholangiogram - patient added to OR schedule for this , 03/25. Pathophysiology of gallbladder discussed with patient and patient's . Surgery risks discussed with patient. Patient and agreeable to plan. General surgery will see patient tomorrow- at that time will make patient NPO after midnight for anticipated surgery on . Will repeat amylase and lipase in AM. Recommend clear liquid diet until surgery. Will add SQ Heparin 5000 Q12 to DVT Prophylaxis. Please call with questions or concerns.
[2017-05-04] MEDS ORDERED: NURSING DECISION MEDICATION ORDER SCH ×2 (12:30→15:30)
[2017-05-04] MEDS ORDERED: COUGH DROP (SUGAR FREE) LOZ 24 LOZ/1 BOX LOZ PRN (15:30)
[2017-05-04 16:00] VITALS: O2SAT 92
[2017-05-04 16:13] VITALS: BP 159/83; PULSE 48; TEMP 36.8; O2SAT 96
[2017-05-04] MEDS ORDERED: NURSING VERBAL MED ORDER ONE (16:15)
[2017-05-04 16:19] VITALS: BP 151/78; PULSE 50; O2SAT 95
--- NOTE | 2017-05-04 16:25 | Progress Note ---
Subjective Date of Service: May 04, 2017. Subjective Pt evaluation today including: conversation w/ patient, physical exam, lab review, review of studies, review of inpatient medication list Saw/examined the patient in room 262 No problems/issues to note today Denies fevers/chills denies abdominal pain; denies nausea/vomiting/diarrhea Review of Systems Constitutional: No fever, No chills Abdomen: No pain (resolved), No nausea, No vomiting, No diarrhea, No constipation, No GI bleeding Medications Current Inpatient Medications Medications (Trade) Dose Ordered Sig/Kylie Route Start Time Stop Time Status Last Admin Dose Admin Lactated Ringer's 1,000 ml @ 80 mls/hr [id number] IV 04/30/17 18:45 05/30/17 18:44 05/04/17 12:00 80 MLS/HR Ondansetron HCl (Zofran Inj) 4 mg Q4H PRN IV 04/30/17 17:15 05/30/17 17:14 05/02/17 12:42 4 MG Hydromorphone HCl (Dilaudid Inj) 1 mg Q3H PRN IV 04/30/17 17:15 05/14/17 17:14 05/02/17 12:43 1 MG Lorazepam 1 mg/ Syringe 1 ml @ 1 mls/min Q6 PRN IV 04/30/17 18:45 05/30/17 18:44 05/01/17 16:21 1 MLS/MIN Allopurinol (Zyloprim Tab) 100 mg DAILY PO 05/02/17 09:00 06/01/17 08:59 05/04/17 08:28 100 MG Pantoprazole Sodium (Protonix Tab) 40 mg DAILY PO 05/02/17 09:00 06/01/17 08:59 05/04/17 08:28 40 MG Nebivolol (Bystolic Tab) 5 mg QPM PO 05/01/17 21:00 05/31/17 20:59 05/03/17 20:31 5 MG Loperamide HCl (Imodium Cap) 2 mg PRN PRN PO 05/03/17 18:00 06/02/17 17:59 Heparin Sodium (Porcine) (Heparin Sq 5000 Unit/0.5ml) 5,000 unit Q12 SQ 05/04/17 21:00 06/03/17 20:59 Menthol (Nice Marisela) 1 marisela PRN PRN MARIESLA 05/04/17 15:30 06/03/17 15:29 Miscellaneous Information (Nursing Verbal Med Order) 1 ea ONE ONCE N/A 05/04/17 16:15 05/04/17 16:16 UNV Objective Vital Signs Date Time Temp Pulse Resp B/P (MAP) Pulse Ox O2 Delivery O2 Flow Rate FiO2 05/04/17 08:00 Room Air 05/04/17 07:00 36.8 45 18 144/80 (101) 92 Room Air 05/04/17 00:10 36.6 55 16 158/86 (110) 92 Room Air 05/04/17 00:00 Room Air Physical Exam General Appearance: no apparent distress Respiratory/Chest: no respiratory distress, no accessory muscle use Cardiovascular: regular rate, rhythm Abdomen: normal bowel sounds, non tender, soft, + hernia (ventral hernia) Laboratory Results Last 24 Hours Test 05/04/17 07:02 White Blood Count 6.30 K/uL Red Blood Count 4.25 M/uL Hemoglobin 12.3 g/dL Hematocrit 35.7 % Mean Corpuscular Volume 84.0 fL Mean Corpuscular Hemoglobin 28.9 pg Mean Corpuscular Hemoglobin Concent 34.5 g/dl RDW Standard Deviation 40.3 fL RDW Coefficient of Variation 13.4 % Platelet Count 222 K/uL Mean Platelet Volume 9.6 fL Assessment and Plan This is a 71 year old male with a PMH of HTN, PVCs - presents with abdominal pain and subsequently found to have gallstone pancreatitis Acute Gallstone Pancreatitis Lipase elevated on admission CT, gallbladder US, MRCP shows acute cholecystitis there had been some CBD dilatation acute pancreatitis likely secondary to gallstone had been on fluids, NPO, doing better now appreciate GI and general surgery input General Surgery recommends cholecystectomy on on clears and NPO after midnight on 05/05 Sinus Bradycardia HRs in the 40s-50s will hold b-duncan, and monitor PVCs holding b-duncan may need cardio input if HRs remain low Incidental Renal Mass A 1.3 cm solid right renal mass. This is suspicious for renal cell carcinoma. This can be confirmed with follow-up dedicated renal MRI outpatient renal MRI HTN hold Bystolic monitor BP DVT ppx subq heparin FULL CODE
[2017-05-04] MEDS: HEPARIN SOD 5000 UNIT/0.5 ML CARP SQ SCH (20:32)
[2017-05-04 22:38] VITALS: BP 151/80; PULSE 45; TEMP 36.8; O2SAT 90
[2017-05-05] MEDS: LACTATED RINGER'S 1000ML 1,000 ML IV SCH ×2 (00:36→13:56)
[2017-05-05 05:28] LABS: HEMATOCRIT 35.6 % (42-52); HEMOGLOBIN 12.2 g/dL (14.0-18.0); MEAN CELL VOLUME 84.8 fL (80-100); MEAN CORPUSCULAR HGB CONC 34.3 g/dl (32-36); MEAN PLATELET VOLUME 9.5 fL (7.4-10.4); PLATELET COUNT 238 K/uL (130-400); RED CELL DISTRIBUTION WIDTH CV 13.4 % (11.5-14.5); RED CELL DISTRIBUTION WIDTH SD 40.5 fL (36.4-46.3); WHITE BLOOD COUNT 6.27 K/uL (4.8-10.8)
[2017-05-05 05:53] LABS: CALCIUM 8.7 mg/dl (8.5-10.1); CREATININE 0.92 mg/dl (0.60-1.40); POTASSIUM 3.9 mmol/L (3.5-5.1)
--- NOTE | 2017-05-05 07:46 | SURGERY PROGRESS NOTE ---
DATE: 05/05/2017 Kee is resting comfortably. He has not had any bowel movements. He is starting to pass some flatus only, had some bowel function a couple days ago. He tolerated clear liquids yesterday. At this time, he is having no abdominal discomfort. On examination, he has minimal right upper quadrant guarding. Laboratory mccoy, his lipase is still elevated, suspected 1200s or so. Amylase is slightly elevated, although is decreasing. At this point, we will plan to proceed with laparoscopic cholecystectomy, intraoperative cholangiogram for tomorrow. Risks and complication of the surgery were explained to the patient of bleeding, infection, converting to an open procedure, and he would like to proceed accordingly. We started on subcu heparin yesterday since he has been here a few days with limited activity.
[2017-05-05 08:02] VITALS: BP 150/83; PULSE 52; TEMP 36.7; O2SAT 93
[2017-05-05 08:07] VITALS: O2SAT 93
[2017-05-05] MEDS: ALLOPURINOL 100 MG TAB PO SCH (08:13)
[2017-05-05] MEDS: PANTOprazole SOD 40 MG TAB PO SCH (08:13)
[2017-05-05] MEDS: HEPARIN SOD 5000 UNIT/0.5 ML CARP SQ SCH ×2 (08:16→20:45)
[2017-05-05 14:54] VITALS: BP 159/87; PULSE 45; TEMP 36.8; O2SAT 92
[2017-05-05 15:59] VITALS: PULSE 49
[2017-05-05 16:01] VITALS: O2SAT 92
--- NOTE | 2017-05-05 18:34 | Progress Note ---
Subjective Date of Service: May 05, 2017. Subjective Pt evaluation today including: conversation w/ patient, physical exam, lab review, review of studies, review of inpatient medication list Saw/examined the patient in room 262 Doing well, no problems/issues at this time Review of Systems Constitutional: No fever, No chills Abdomen: No pain, No nausea, No vomiting, No diarrhea, No constipation, No GI bleeding Heme: No abnormal bleeding/bruising Medications Current Inpatient Medications Medications (Trade) Dose Ordered Sig/Kylie Route Start Time Stop Time Status Last Admin Dose Admin Lactated Ringer's 1,000 ml @ 80 mls/hr [id number] IV 04/30/17 18:45 05/30/17 18:44 05/05/17 13:56 80 MLS/HR Ondansetron HCl (Zofran Inj) 4 mg Q4H PRN IV 04/30/17 17:15 05/30/17 17:14 05/02/17 12:42 4 MG Hydromorphone HCl (Dilaudid Inj) 1 mg Q3H PRN IV 04/30/17 17:15 05/14/17 17:14 05/02/17 12:43 1 MG Lorazepam 1 mg/ Syringe 1 ml @ 1 mls/min Q6 PRN IV 04/30/17 18:45 05/30/17 18:44 05/01/17 16:21 1 MLS/MIN Allopurinol (Zyloprim Tab) 100 mg DAILY PO 05/02/17 09:00 06/01/17 08:59 05/05/17 08:13 100 MG Pantoprazole Sodium (Protonix Tab) 40 mg DAILY PO 05/02/17 09:00 06/01/17 08:59 05/05/17 08:13 40 MG Nebivolol (Bystolic Tab) 5 mg QPM PO 05/01/17 21:00 05/31/17 20:59 Future Hold 05/03/17 20:31 5 MG Loperamide HCl (Imodium Cap) 2 mg PRN PRN PO 05/03/17 18:00 06/02/17 17:59 Heparin Sodium (Porcine) (Heparin Sq 5000 Unit/0.5ml) 5,000 unit Q12 SQ 05/04/17 21:00 05/05/17 23:55 05/05/17 08:16 5,000 UNIT Menthol (Nice Marisela) 1 marisela PRN PRN MARISELA 05/04/17 15:30 06/03/17 15:29 05/04/17 18:35 1 MARISELA Objective Vital Signs Date Time Temp Pulse Resp B/P (MAP) Pulse Ox O2 Delivery O2 Flow Rate FiO2 05/05/17 16:01 92 Room Air 05/05/17 15:59 49 05/05/17 14:54 36.8 45 18 159/87 (111) 92 Room Air 05/05/17 08:07 93 Room Air 05/05/17 08:02 36.7 52 20 150/83 (105) 93 Room Air 05/05/17 08:00 Room Air 05/05/17 00:10 Room Air 05/04/17 22:38 36.8 45 18 151/80 (103) 90 Room Air 05/04/17 16:19 50 18 151/78 (102) 95 Room Air Physical Exam General Appearance: no apparent distress Respiratory/Chest: no respiratory distress, no accessory muscle use Cardiovascular: regular rate, rhythm, no edema, no murmur Extremities: normal inspection, no pedal edema Laboratory Results Last 24 Hours Test 05/05/17 05:08 White Blood Count 6.27 K/uL Red Blood Count 4.20 M/uL Hemoglobin 12.2 g/dL Hematocrit 35.6 % Mean Corpuscular Volume 84.8 fL Mean Corpuscular Hemoglobin 29.0 pg Mean Corpuscular Hemoglobin Concent 34.3 g/dl RDW Standard Deviation 40.5 fL RDW Coefficient of Variation 13.4 % Platelet Count 238 K/uL Mean Platelet Volume 9.5 fL Sodium Level 141 mmol/L Potassium Level 3.9 mmol/L Chloride Level 106 mmol/L Carbon Dioxide Level 29 mmol/L Anion Gap 6.0 mmol/L Blood Urea Nitrogen 8 mg/dl Creatinine 0.92 mg/dl Est Creatinine Clear Calc Drug Dose 104.4 ml/min Estimated GFR () 98.0 Estimated GFR (Non- 84.6 BUN/Creatinine Ratio 8.6 Random Glucose 94 mg/dl Calcium Level 8.7 mg/dl Magnesium Level 1.9 mg/dl Amylase Level 123 U/L Lipase 1297 U/L Thyroid Stimulating Hormone (TSH) 3.020 uIu/ml Assessment and Plan This is a 71 year old male with a PMH of HTN, PVCs - presents with abdominal pain and subsequently found to have gallstone pancreatitis Acute Gallstone Pancreatitis 05/05 plan for cholecystectomy in AM (05/06) he will be NPO after midnight continue IVFs 05/04 Lipase elevated on admission CT, gallbladder US, MRCP shows acute cholecystitis there had been some CBD dilatation acute pancreatitis likely secondary to gallstone had been on fluids, NPO, doing better now appreciate GI and general surgery input General Surgery recommends cholecystectomy on on clears and NPO after midnight on 05/05 Sinus Bradycardia HRs in the 40s-50s will hold b-duncan, and monitor PVCs holding b-duncan may need cardio input if HRs remain low Incidental Renal Mass A 1.3 cm solid right renal mass. This is suspicious for renal cell carcinoma. This can be confirmed with follow-up dedicated renal MRI outpatient renal MRI HTN hold Bystolic monitor BP DVT ppx subq heparin FULL CODE
[2017-05-06] VITALS (11 sets, daily range): BP systolic 132–159; BP diastolic 73–87; PULSE 48–99; TEMP 36.3–37.4; O2SAT 91–96
[2017-05-06] MEDS: LACTATED RINGER'S 1000ML 1,000 ML IV SCH ×2 (02:00→18:05)
--- NOTE | 2017-05-06 06:49 | SURGERY PROGRESS NOTE ---
DATE: 05/06/2017 Kee is resting comfortably. He feels great. He had 2 bowel movements yesterday. He tolerated some liquids. His last vitals showed a temperature of 37.4, pulse 99, respiration 16, blood pressure 154/81, O2 sat is 93 on room air. The abdomen is completely benign. We were planning to proceed with laparoscopic cholecystectomy, intraoperative cholangiogram today. He is agreeable to it and we will proceed accordingly. We will continue with the subQ heparin.
[2017-05-06 08:12] LABS: HEMATOCRIT 38.3 % (42-52); HEMOGLOBIN 13.3 g/dL (14.0-18.0); MEAN CELL VOLUME 83.3 fL (80-100); MEAN CORPUSCULAR HEMOGLOBIN 28.9 pg (25-34); MEAN CORPUSCULAR HGB CONC 34.7 g/dl (32-36); PLATELET COUNT 266 K/uL (130-400); RED CELL DISTRIBUTION WIDTH CV 13.4 % (11.5-14.5); RED CELL DISTRIBUTION WIDTH SD 40.4 fL (36.4-46.3); WHITE BLOOD COUNT 6.03 K/uL (4.8-10.8)
[2017-05-06 08:57] LABS: CREATININE 0.92 mg/dl (0.60-1.40)
[2017-05-06 08:58] LABS: POTASSIUM 3.6 mmol/L (3.5-5.1)
[2017-05-06] MEDS: PANTOprazole SOD 40 MG TAB PO SCH (09:00)
[2017-05-06] MEDS: ALLOPURINOL 100 MG TAB PO SCH (09:00)
[2017-05-06] MEDS ORDERED: EpHEDrine SULFATE INJ 50 MG/ML AMP IV PRN (10:15)
[2017-05-06] MEDS ORDERED: MEPERIDINE HCL 25 MG/ML CARP IV PRN (10:15)
[2017-05-06] MEDS ORDERED: LABETALOL HCL IV 5 MG/ML 20ML IV PRN (10:15)
[2017-05-06] MEDS ORDERED: ATROPINE SULFATE 0.1 MG/ML 5ML SYR IV PRN (10:15)
[2017-05-06] MEDS ORDERED: HYDROmorphone INJ 1 MG/ML SYR IV PRN (10:15)
[2017-05-06] MEDS ORDERED: ONDANSETRON INJ 2 MG/ML 2 ML VIAL IV PRN (10:15)
[2017-05-06] MEDS ORDERED: LIDOCAINE/EPINEPHRINE 1% 20 ML VIAL ONE ×2 (11:25→11:27)
[2017-05-06] MEDS ORDERED: CONRAY 60% 50 ML VIAL ONE (11:25)
[2017-05-06] MEDS ORDERED: LIDOCAINE HCL 2% 2 ML VIAL (20MG/ML) ONE (12:12)
[2017-05-06] MEDS ORDERED: ROCURONIUM BROMIDE 10 MG/ML 5 ML VIAL IV ONE (12:12)
[2017-05-06] MEDS ORDERED: ONDANSETRON INJ 2 MG/ML 2 ML VIAL ONE (12:12)
[2017-05-06] MEDS ORDERED: FENTANYL CITRATE INJ 50 MCG/1 ML 2 ML VIAL ONE ×2 (12:12→12:37)
[2017-05-06] MEDS ORDERED: NEOSTIGMINE METHYLSULFATE 5 MG/5 ML SYR ONE (12:12)
[2017-05-06] MEDS ORDERED: GLYCOPYRROLATE INJ 0.2 MG/ML VIAL ONE (12:12)
[2017-05-06] MEDS ORDERED: PROPOFOL IV EMULSION 10 MG/ML 20 ML VIAL IV ONE ×2 (12:12→12:46)
[2017-05-06] MEDS ORDERED: MIDAZOLAM HCL 1 MG/ML 2ML VIAL ONE (12:12)
[2017-05-06] MEDS ORDERED: DEXAMETHASONE SOD INJ 4 MG/ML VIAL ONE (12:12)
[2017-05-06] MEDS ORDERED: LABETALOL HCL IV 5 MG/ML 20ML IV ONE ×2 (12:19→12:26)
[2017-05-06] MEDS ORDERED: GLUCAGON FOR INJ 1 MG VIAL ONE (12:22)
[2017-05-06] MEDS ORDERED: CEFOXITIN SOD 1 GM VIAL ONE (12:46)
--- NOTE | 2017-05-06 12:53 | [facility] Post Operative Brief Note ---
Immediate Operative Summary Operative Date May 06, 2017. Pre-Operative Diagnosis Cholelithiasis withsecondary pancreatitis Post-Operative Diagnosis same Procedure(s) Performed Laparoscopic Cholecystectomy with Cholangiogram Surgeon Dr. Bruner Bobbin Coil Winder Surgeon(s) CATHERINE Davis Estimated Blood Loss 10mL Findings See Below ccc Specimens Permanent: A. Gallbladder Microbiology: 1. Gallbladder content for culture and sensitivity, gram stain, anaerobic and aerobic Drains 19 genia per stab Anesthesia Type General
[2017-05-06] MEDS: FENTANYL CITRATE INJ 50 MCG/1 ML 2 ML VIAL IV PRN ×2 (13:19→13:32)
--- NOTE | 2017-05-06 13:25 | DIAGNOSTIC IMAGING REPORT ---
CHOLANGIOGRAM O.R. HISTORY: Post cholecystectomy. FLUOROSCOPY TIME: 8 seconds. FINDINGS: Fluoroscopy was provided for an intraoperative cholangiogram status post cholecystectomy. Contrast was injected through the cystic duct remnant. The common bile duct is normal in course and caliber. There are no filling defects seen within the common bile duct to suggest a retained stone. Asthma contrast extends to the small bowel. There is no intrahepatic bile duct dilatation. IMPRESSION: Fluoroscopy provided for an intraoperative cholangiogram status post cholecystectomy. No filling defects within the common bile duct. Spasm distal common bile duct sphincter of limited contrast flow to the small bowel The above report was generated using voice recognition software. It may contain grammatical, syntax or spelling errors. Electronically signed by: Patric Moy M.D. 05/06/2017 1:23 PM Dictated Date/Time: 05/06/2017 1:22 PM
[2017-05-06] MEDS ORDERED: OXYCODONE/ACETAMINOPHEN 5-325 TAB PO PRN (13:30)
--- NOTE | 2017-05-06 14:16 | Anesthesiology Progress Note ---
Anesthesia Post Op Note Date & Time May 06, 2017 at 14:16 Vital Signs Pain Intensity: 2 Vital Signs Past 12 Hours Date Time Temp Pulse Resp B/P (MAP) Pulse Ox O2 Delivery O2 Flow Rate FiO2 05/06/17 14:06 146/69 05/06/17 14:03 49 15 93 05/06/17 14:03 49 15 05/06/17 14:02 127/73 05/06/17 13:58 47 12 05/06/17 13:58 47 12 95 05/06/17 13:56 36.6 05/06/17 13:56 134/73 05/06/17 13:53 48 12 05/06/17 13:53 48 12 95 05/06/17 13:52 47 16 05/06/17 13:52 48 16 135/75 98 05/06/17 13:47 48 12 93 05/06/17 13:47 48 12 05/06/17 13:46 139/72 05/06/17 13:42 47 12 05/06/17 13:42 48 12 94 05/06/17 13:41 130/74 05/06/17 13:37 52 12 92 05/06/17 13:37 53 12 05/06/17 13:36 143/80 05/06/17 13:35 48 14 97 05/06/17 13:35 48 14 05/06/17 13:32 147/75 05/06/17 13:30 46 20 05/06/17 13:30 49 20 97 05/06/17 13:29 46 14 05/06/17 13:29 50 14 96 05/06/17 13:27 149/78 05/06/17 13:24 48 19 05/06/17 13:24 48 19 97 05/06/17 13:23 48 22 96 05/06/17 13:23 48 22 05/06/17 13:22 163/78 05/06/17 13:18 52 16 05/06/17 13:18 52 16 99 05/06/17 13:17 154/88 05/06/17 13:15 195/90 05/06/17 13:13 57 21 05/06/17 13:13 36.7 58 15 195/90 97 Oxymask 10 05/06/17 13:13 57 21 98 3/1/18 07:40 Room Air 05/06/17 07:05 37.0 48 18 159/83 (108) 95 Room Air Notes Mental Status: alert / awake / arousable, participated in evaluation Pt Amnestic to Procedure: Yes Nausea / Vomiting: adequately controlled Pain: adequately controlled Airway Patency, RR, SpO2: stable & adequate BP & HR: stable & adequate Hydration State: stable & adequate Anesthetic Complications: no major complications apparent
--- NOTE | 2017-05-06 14:32 | OPERATIVE REPORT ---
DATE OF OPERATION: 05/06/2017 SURGEON: Dr. Bruner. SURFACE SUPERVISOR: Genoveva Valverde PA-C. PREOPERATIVE DIAGNOSES: Chronic cholecystitis, cholelithiasis with secondary pancreatitis. POSTOPERATIVE DIAGNOSES: Same. PROCEDURE: Laparoscopic cholecystectomy, intraoperative cholangiogram. SUMMARY: The patient was brought into the operating room theater. The abdomen was prepped with Betadine scrubbing solution and properly draped. We made a small incision transversely above the umbilicus sufficient enough to place a Veress needle. Actually the Veress needle pretty much the whole hub, I had to go around this as patient apparently had lost some weight. He has had a very lax abdominal wall. Once his CO2 was insufflated, we placed a 5 mm trocar followed by the scope. We had a 5 mm scope were pretty much near the hub to get up to the liver area. Under direct visualization, we placed a 5 mm epigastric, two 5 mm subcostal ports with preemptive local analgesia 1% Xylocaine with epinephrine. Gallbladder was identified, it was placed under traction. It was thick walled. Edema of the gallbladder was appreciated. We then placed the patient in reverse Trendelenburg position, turned into the left significantly that we started dissecting out the triangle of Calot. I identified the artery easily into the gallbladder, we doubly clipped it and divided. The cystic duct was identified. We clipped it proximally. A small opening in the cystic duct was made, a #4 urethral catheter transversed the abdominal wall with position of the cystic duct. Serial x-rays were taken. The initial x-rays that showed the possibility of maybe some air in the system, we flushed it out. The common bile duct was dilated, but there was some flow into the duodenum, although small, it looked like it was tapering down. We gave some glucagon after waiting for 1 mg. We then flushed out the common bile duct with normal saline, sufficient enough that we took another cholangiogram. At this time, we did not see anything in the common bile duct with any defects. The dye did go into the duodenum, although not significantly output. I suspect that this may be related mostly to the recent pancreatitis that any true filling defect in the distal common bile duct. Once this was completed, we choked on the cystic duct a little bit to get it was quite long and doubly clipped and divided. Gallbladder removed in antegrade fashion using electrocautery. The gallbladder was thick, gallbladder appeared to have is shady fatty appearance into the wall. We were able then to free it up completely from the liver, placed it into an Endopouch and taken out intact through the epigastric port where we took cultures of the gallbladder. We looked at the contents and there were bilirubinate stones. Subhepatic suprahepatic area was then checked for hemostasis and appeared satisfactory. I elected to drain this with a 19 Miles drain that was brought out medially in the epigastric area, placed subhepatically, taken out lateral to the 5 mm trocar site, attached to skin edge with 2-0 silk suture. At this point, we placed a camera in subcostal port to visualize the umbilical opening, no adhesions in that area identified. Individual trocars were taken under direct visualization with lastly umbilical trocar. Wounds were closed using 4-0 Monocryl for the subcutaneous tissue. Steri-Strips applied. The procedure was tolerated well by the patient. Estimated blood loss approximately 10 mL. The patient was taken to recovery in good condition. I attest to the content of the Intraoperative Record and any orders documented therein. Any exception s are noted below.
[2017-05-06] MEDS ORDERED: OXYC-57 PO (16:11)
--- NOTE | 2017-05-06 16:13 | Discharge Instructions ---
Discharge Instructions Date of Service May 06, 2017. Admission Reason for Admission: Acute Pancreatitis Discharge Discharge Diagnosis / Problem: Acute Pancreatitis Discharge Goals Goal(s): Decrease discomfort, Improve function Activity Recommendations Activity Limitations: as noted below Lifting Limitations: no more than 10 pounds Exercise/Sports Limitations: until after follow-up appointment May Resume Sexual Activity: after follow-up appointment Shower/Bathe: tomorrow Driving or Machine Use: resume 3 days after discharge . Instructions / Follow-Up Instructions / Follow-Up Please follow-up with Dr. Bruner in the General Surgery Clinic located at [address] [place] [address] [place] in 1-2 weeks. Please call the office at [phone] to make an appointment. Please call the office with any questions or concerns. Current Hospital Diet Patient's current hospital diet: Clear Liquid Diet Discharge Diet Recommended Diet: Regular Diet Procedures Procedures Performed: Laparoscopic Cholecystectomy with Cholangiogram Pending Studies Studies pending at discharge: yes List of pending studies: Pathology report. Laboratory Results Lipid Panel Test 05/01/17 05:58 Range/Units Triglycerides Level 63 0-150 mg/dl Cholesterol Level 98 0-200 mg/dl HDL Cholesterol 43 mg/dl Cholesterol/HDL Ratio 2.3 LDL Cholesterol, Calculated 42 mg/dl Medical Emergencies . Who to Call and When: Medical Emergencies: If at any time you feel your situation is an emergency, please call 911 immediately. . Non-Emergent Contact Non-Emergency issues call your: Primary Care Provider, Surgeon Call Non-Emergent contact if: temperature is above 101.5, your pain is not controlled, wound has increased drainage, wound has increased redness . "Provider Documentation" section prepared by Genoveva Valverde. . VTE Core Measure Inpt VTE Proph given/why not?: Annika Turner, SCD's
--- NOTE | 2017-05-06 16:54 | Progress Note ---
Subjective Date of Service: May 06, 2017. Subjective Pt evaluation today including: conversation w/ patient, physical exam, lab review, review of studies, review of inpatient medication list Saw/examined the patient in room 380 No problems/issues to note Had surgery earlier today, BIRD drain in place no pain, no nausea/vomiting/diarrhea Review of Systems Constitutional: No fever, No chills Abdomen: No pain, No nausea, No vomiting, No diarrhea Medications Current Inpatient Medications Medications (Trade) Dose Ordered Sig/Kylie Route Start Time Stop Time Status Last Admin Dose Admin Lactated Ringer's 1,000 ml @ 80 mls/hr [id number] IV 04/30/17 18:45 05/30/17 18:44 05/06/17 02:00 80 MLS/HR Ondansetron HCl (Zofran Inj) 4 mg Q4H PRN IV 04/30/17 17:15 05/30/17 17:14 05/02/17 12:42 4 MG Hydromorphone HCl (Dilaudid Inj) 1 mg Q3H PRN IV 04/30/17 17:15 05/14/17 17:14 05/02/17 12:43 1 MG Lorazepam 1 mg/ Syringe 1 ml @ 1 mls/min Q6 PRN IV 04/30/17 18:45 05/30/17 18:44 05/01/17 16:21 1 MLS/MIN Allopurinol (Zyloprim Tab) 100 mg DAILY PO 05/02/17 09:00 06/01/17 08:59 05/05/17 08:13 100 MG Pantoprazole Sodium (Protonix Tab) 40 mg DAILY PO 05/02/17 09:00 06/01/17 08:59 05/05/17 08:13 40 MG Nebivolol (Bystolic Tab) 5 mg QPM PO 05/01/17 21:00 05/31/17 20:59 Future Hold 05/03/17 20:31 5 MG Loperamide HCl (Imodium Cap) 2 mg PRN PRN PO 05/03/17 18:00 06/02/17 17:59 Menthol (Nice Marisela) 1 marisela PRN PRN MARISELA 05/04/17 15:30 06/03/17 15:29 05/04/17 18:35 1 MARISELA Cefoxitin Sodium 2000 mg/Dextrose 60 ml @ 100 mls/hr Q6H IV 05/06/17 20:00 05/08/17 19:59 Oxycodone/ Acetaminophen (Percocet 5-325mg Tab) 1 tab Q4H PRN PO 05/06/17 13:30 05/20/17 13:29 Oxycodone/ Acetaminophen (Percocet 5-325mg Tab) 2 tab Q4H PRN PO 05/06/17 13:30 05/20/17 13:29 Heparin Sodium (Porcine) (Heparin Sq 5000 Unit/0.5ml) 5,000 unit Q12 SQ 05/06/17 21:00 06/05/17 20:59 Objective Vital Signs Date Time Temp Pulse Resp B/P (MAP) Pulse Ox O2 Delivery O2 Flow Rate FiO2 05/06/17 16:00 94 Nasal Cannula 2.0 05/06/17 15:44 36.6 59 16 150/87 (108) 95 Nasal Cannula 2.0 05/06/17 15:16 36.3 59 19 137/86 (103) 94 Nasal Cannula 2.0 05/06/17 14:51 95 Nasal Cannula 3.0 05/06/17 14:45 36.6 53 18 143/82 (102) 96 Nasal Cannula 3.0 05/06/17 14:36 133/73 05/06/17 14:34 49 14 05/06/17 14:34 49 14 96 05/06/17 14:31 122/74 05/06/17 14:29 49 15 95 05/06/17 14:29 49 15 05/06/17 14:26 141/73 05/06/17 14:24 51 16 97 05/06/17 14:24 51 16 05/06/17 14:23 52 12 05/06/17 14:23 51 12 96 05/06/17 14:22 130/75 05/06/17 14:18 52 15 97 05/06/17 14:18 52 15 05/06/17 14:16 140/77 05/06/17 14:13 47 12 99 05/06/17 14:13 47 12 05/06/17 14:12 48 15 130/72 96 05/06/17 14:12 49 15 05/06/17 14:07 49 16 94 05/06/17 14:07 48 16 05/06/17 14:06 146/69 05/06/17 14:03 49 15 93 05/06/17 14:03 49 15 05/06/17 14:02 127/73 05/06/17 13:58 47 12 05/06/17 13:58 47 12 95 05/06/17 13:56 36.6 05/06/17 13:56 134/73 05/06/17 13:53 48 12 05/06/17 13:53 48 12 95 05/06/17 13:52 47 16 05/06/17 13:52 48 16 135/75 98 05/06/17 13:47 48 12 93 05/06/17 13:47 48 12 05/06/17 13:46 139/72 05/06/17 13:42 47 12 05/06/17 13:42 48 12 94 05/06/17 13:41 130/74 05/06/17 13:37 52 12 92 05/06/17 13:37 53 12 05/06/17 13:36 143/80 05/06/17 13:35 48 14 97 05/06/17 13:35 48 14 05/06/17 13:32 147/75 05/06/17 13:30 46 20 05/06/17 13:30 49 20 97 05/06/17 13:29 46 14 05/06/17 13:29 50 14 96 05/06/17 13:27 149/78 05/06/17 13:24 48 19 05/06/17 13:24 48 19 97 05/06/17 13:23 48 22 96 05/06/17 13:23 48 22 05/06/17 13:22 163/78 05/06/17 13:18 52 16 05/06/17 13:18 52 16 99 05/06/17 13:17 154/88 05/06/17 13:15 195/90 05/06/17 13:13 57 21 05/06/17 13:13 36.7 58 15 195/90 97 Oxymask 10 05/06/17 13:13 57 21 98 05/06/17 07:40 Room Air 05/06/17 07:05 37.0 48 18 159/83 (108) 95 Room Air 05/06/17 00:15 Room Air 05/06/17 00:13 37.4 99 16 154/81 (105) 93 Room Air Physical Exam General Appearance: no apparent distress Respiratory/Chest: no respiratory distress, no accessory muscle use Abdomen: + pertinent finding (BIRD drain in place, soft, non-tender) Neurologic/Psychiatric: no motor/sensory deficits, alert, normal mood/affect Laboratory Results Last 24 Hours Test 05/06/17 07:48 White Blood Count 6.03 K/uL Red Blood Count 4.60 M/uL Hemoglobin 13.3 g/dL Hematocrit 38.3 % Mean Corpuscular Volume 83.3 fL Mean Corpuscular Hemoglobin 28.9 pg Mean Corpuscular Hemoglobin Concent 34.7 g/dl RDW Standard Deviation 40.4 fL RDW Coefficient of Variation 13.4 % Platelet Count 266 K/uL Mean Platelet Volume 9.0 fL Sodium Level 141 mmol/L Potassium Level 3.6 mmol/L Chloride Level 105 mmol/L Carbon Dioxide Level 30 mmol/L Anion Gap 6.0 mmol/L Blood Urea Nitrogen 8 mg/dl Creatinine 0.92 mg/dl Est Creatinine Clear Calc Drug Dose 104.4 ml/min Estimated GFR () 98.0 Estimated GFR (Non- 84.6 BUN/Creatinine Ratio 8.3 Random Glucose 91 mg/dl Calcium Level 9.0 mg/dl Assessment and Plan This is a 71 year old male with a PMH of HTN, PVCs - presents with abdominal pain and subsequently found to have gallstone pancreatitis Acute Gallstone Pancreatitis 05/06 s/p cholecystectomy clear liquid diet plan for d/c home in AM appreciate general surgery input 05/05 plan for cholecystectomy in AM (05/06) he will be NPO after midnight continue IVFs 05/04 Lipase elevated on admission CT, gallbladder US, MRCP shows acute cholecystitis there had been some CBD dilatation acute pancreatitis likely secondary to gallstone had been on fluids, NPO, doing better now appreciate GI and general surgery input General Surgery recommends cholecystectomy on on clears and NPO after midnight on 05/05 Sinus Bradycardia HRs in the 40s-50s will hold b-duncan, and monitor PVCs holding b-duncan may need cardio input if HRs remain low Incidental Renal Mass A 1.3 cm solid right renal mass. This is suspicious for renal cell carcinoma. This can be confirmed with follow-up dedicated renal MRI outpatient renal MRI HTN hold Bystolic monitor BP DVT ppx subq heparin FULL CODE
[2017-05-06] MEDS: CEFOXITIN IV 2,000 MG in DEXTROSE 5% 50ML 50 ML IV SCH (20:20)
[2017-05-06] MEDS: HEPARIN SOD 5000 UNIT/0.5 ML CARP SQ SCH (20:26)
[2017-05-06] MEDS: OXYCODONE/ACETAMINOPHEN 5-325 TAB PO PRN (22:15)
[2017-05-07] MEDS: CEFOXITIN IV 2,000 MG in DEXTROSE 5% 50ML 50 ML IV SCH (02:15)
[2017-05-07] MEDS: OXYCODONE/ACETAMINOPHEN 5-325 TAB PO PRN ×2 (02:16→06:25)
[2017-05-07 03:43] VITALS: BP 124/75; PULSE 48; TEMP 36.8; O2SAT 92
[2017-05-07 04:54] LABS: BASO % 0.1 %; BASO ABS # 0.01 K/uL (0-0.2); EOS % 0.1 %; EOS ABS # 0.01 K/uL (0-0.5); HEMATOCRIT 37.9 % (42-52); HEMOGLOBIN 13.2 g/dL (14.0-18.0); IG# 0.01 K/uL (0.00-0.02); LYMPH % 12.3 %; LYMPH ABS # 1.17 K/uL (1.2-3.4); MEAN CELL VOLUME 84.2 fL (80-100); MEAN CORPUSCULAR HEMOGLOBIN 29.3 pg (25-34); MEAN CORPUSCULAR HGB CONC 34.8 g/dl (32-36); MEAN PLATELET VOLUME 9.3 fL (7.4-10.4); MONO % 8.4 %; NEUT ABS # 7.49 K/uL (1.4-6.5); PLATELET COUNT 308 K/uL (130-400); RED CELL DISTRIBUTION WIDTH CV 13.5 % (11.5-14.5); RED CELL DISTRIBUTION WIDTH SD 40.8 fL (36.4-46.3); WHITE BLOOD COUNT 9.49 K/uL (4.8-10.8)
[2017-05-07 05:13] LABS: ALBUMIN 3.5 gm/dl (3.4-5.0); CALCIUM 8.8 mg/dl (8.5-10.1); CREATININE 1.48 mg/dl (0.60-1.40); POTASSIUM 3.4 mmol/L (3.5-5.1)
[2017-05-07 05:18] LABS: TOTAL PROTEIN 7.5 gm/dl (6.4-8.2)
[2017-05-07] MEDS: LACTATED RINGER'S 1000ML 1,000 ML IV SCH (06:07)
[2017-05-07 07:12] VITALS: BP 153/79; PULSE 50; TEMP 36.5; O2SAT 90
--- NOTE | 2017-05-07 08:11 | SURGERY PROGRESS NOTE ---
DATE: 05/07/2017 Kee is first postoperative day laparoscopic cholecystectomy, intraoperative cholangiogram. Intraoperative findings were discussed with the patient. The vital signs showed a temperature of 36.5, pulse 50, respirations 16, blood pressure 153/79, and O2 sats 90 on room air. I&O, he had 450 of urine overnight. His abdomen is softly distended that the Imles drainage was thus less than 50 mL of serous, slightly sanguineous, nonbilious. He tolerated some diet. At this point, the only concerning factor is his laboratory, although he has no back pain. His amylase and lipase about going up respectively. We did not get it the day of the surgery in the morning . It was a slightly elevated the day before. Also, we need to keep an eye on it as his chemistries which showed a creatinine going up to 1.48. We are reevaluating on a clinical basis to see how he is doing later today, but if he is tolerating a diet and he has no back pain, and his GI, no nausea, he could certainly be discharged. We kept on perioperative antibiotics because the gallbladder was acutely inflamed at least grossly. We may consider sending him home on p.o. Cipro for approximately 5 days. The cholangiogram really did not show any obstruction on the common bile duct. Distally, he had some spasm or possibly related to the pancreatitis, some tailoring of the distal common bile duct. Flow into duodenum was very sluggish, but it was present and there were no filling defects that we could see. Discused situation with medical service. GABY
[2017-05-07] MEDS ORDERED: POTASSIUM CHLORIDE 10 MEQ TABCR PO ONE (08:15)
--- NOTE | 2017-05-07 08:26 | Anesthesiology Progress Note ---
Anesthesia Post Op Note Date & Time May 07, 2017 at 08:26 Vital Signs Pain Intensity: 3.0 Vital Signs Past 12 Hours Date Time Temp Pulse Resp B/P (MAP) Pulse Ox O2 Delivery O2 Flow Rate FiO2 05/07/17 07:12 36.5 50 16 153/79 (103) 90 Room Air 05/07/17 07:10 Room Air 05/07/17 03:43 36.8 48 18 124/75 (91) 92 Room Air 05/06/17 23:40 Room Air 05/06/17 23:07 36.9 52 17 146/73 (97) 92 Room Air 05/06/17 20:29 36.9 59 19 134/76 (95) 91 Room Air Notes Mental Status: alert / awake / arousable, participated in evaluation Pt Amnestic to Procedure: Yes Nausea / Vomiting: adequately controlled Pain: adequately controlled Airway Patency, RR, SpO2: stable & adequate BP & HR: stable & adequate Hydration State: stable & adequate Anesthetic Complications: no major complications apparent
[2017-05-07] MEDS ORDERED: CIPROFLOXACIN 500 MG TAB PO SCH (09:00)
[2017-05-07] MEDS: PANTOprazole SOD 40 MG TAB PO SCH (09:02)
[2017-05-07] MEDS: ALLOPURINOL 100 MG TAB PO SCH (09:03)
[2017-05-07] MEDS: HEPARIN SOD 5000 UNIT/0.5 ML CARP SQ SCH (09:06)
[2017-05-07 11:39] VITALS: BP 143/77; PULSE 47; TEMP 36.7; O2SAT 97
[2017-05-07 13:27] LABS: CALCIUM 8.2 mg/dl (8.5-10.1); CREATININE 1.09 mg/dl (0.60-1.40); POTASSIUM 3.2 mmol/L (3.5-5.1)
[2017-05-07 13:36] LABS: TOTAL PROTEIN 6.5 gm/dl (6.4-8.2)
[2017-05-07 14:00] VITALS: Ht 182.9 cm; Wt 127.0 kg
[2017-05-07] MEDS ORDERED: POTASSIUM CHLORIDE 20 MEQ TABCR PO STA ×2 (14:18→14:23)
[2017-05-07] MEDS ORDERED: CIPR1TAB10 PO (14:23)
[2017-05-07] MEDS ORDERED: MCRK20 PO (14:23)
--- NOTE | 2017-05-07 14:32 | Progress Note ---
Progress Note Date of Service May 07, 2017. Progress Note had low fat lunch, no problems tolerating po analgesics creatine, lipase improved gave an additional K+ for level 3.2 and rx for several days at home, also rx to complete 5 days cipro Ok for d/c from surgical standpoint
[2017-05-07 15:29] VITALS: BP 144/79; PULSE 56; TEMP 36.6; O2SAT 92
--- NOTE | 2017-05-07 15:29 | Progress Note ---
Subjective Date of Service: May 07, 2017. Subjective Pt evaluation today including: conversation w/ patient, physical exam, lab review, review of studies, conversation w/ oncology consultant, review of inpatient medication list Saw/examined the patient in room 380 He's doing well, tolerating PO diet no nausea/vomiting, minimal abdominal pain Review of Systems Abdomen: No pain, No nausea, No vomiting, No diarrhea, No constipation, No GI bleeding Medications Current Inpatient Medications Medications (Trade) Dose Ordered Sig/Kylie Route Start Time Stop Time Status Last Admin Dose Admin Lactated Ringer's 1,000 ml @ 100 mls/hr Q10H IV 04/30/17 18:45 05/30/17 18:44 05/07/17 06:07 80 MLS/HR Ondansetron HCl (Zofran Inj) 4 mg Q4H PRN IV 04/30/17 17:15 05/30/17 17:14 05/02/17 12:42 4 MG Hydromorphone HCl (Dilaudid Inj) 1 mg Q3H PRN IV 04/30/17 17:15 05/14/17 17:14 05/02/17 12:43 1 MG Lorazepam 1 mg/ Syringe 1 ml @ 1 mls/min Q6 PRN IV 04/30/17 18:45 05/30/17 18:44 05/01/17 16:21 1 MLS/MIN Allopurinol (Zyloprim Tab) 100 mg DAILY PO 05/02/17 09:00 06/01/17 08:59 05/07/17 09:03 100 MG Pantoprazole Sodium (Protonix Tab) 40 mg DAILY PO 05/02/17 09:00 06/01/17 08:59 05/07/17 09:02 40 MG Nebivolol (Bystolic Tab) 5 mg QPM PO 05/01/17 21:00 05/31/17 20:59 Future Hold 05/03/17 20:31 5 MG Loperamide HCl (Imodium Cap) 2 mg PRN PRN PO 05/03/17 18:00 06/02/17 17:59 Menthol (Nice Marisela) 1 marisela PRN PRN MARISELA 05/04/17 15:30 06/03/17 15:29 05/04/17 18:35 1 MARISELA Oxycodone/ Acetaminophen (Percocet 5-325mg Tab) 1 tab Q4H PRN PO 05/06/17 13:30 05/20/17 13:29 05/06/17 18:36 1 TAB Oxycodone/ Acetaminophen (Percocet 5-325mg Tab) 2 tab Q4H PRN PO 05/06/17 13:30 05/20/17 13:29 05/07/17 06:25 2 TAB Heparin Sodium (Porcine) (Heparin Sq 5000 Unit/0.5ml) 5,000 unit Q12 SQ 05/06/17 21:00 06/05/17 20:59 05/07/17 09:06 5,000 UNIT Ciprofloxacin (Cipro Tab) 500 mg BID PO 05/07/17 09:00 05/17/17 08:59 05/07/17 08:41 500 MG Diphenhydramine HCl (Benadryl Cap) 50 mg TID PRN PO 05/07/17 08:00 06/06/17 07:59 Objective Vital Signs Date Time Temp Pulse Resp B/P (MAP) Pulse Ox O2 Delivery O2 Flow Rate FiO2 05/07/17 14:08 36.7 47 17 97 Room Air 05/07/17 11:39 36.7 47 17 143/77 (99) 97 Room Air 05/07/17 07:12 36.5 50 16 153/79 (103) 90 Room Air 05/07/17 07:10 Room Air 05/07/17 03:43 36.8 48 18 124/75 (91) 92 Room Air 05/06/17 23:40 Room Air 05/06/17 23:07 36.9 52 17 146/73 (97) 92 Room Air 05/06/17 20:29 36.9 59 19 134/76 (95) 91 Room Air 05/06/17 17:45 36.7 61 18 132/79 (96) 92 Nasal Cannula 2.0 05/06/17 16:45 36.5 59 18 134/83 (100) 93 Nasal Cannula 2.0 05/06/17 16:00 94 Nasal Cannula 2.0 05/06/17 15:44 36.6 59 16 150/87 (108) 95 Nasal Cannula 2.0 Physical Exam General Appearance: no apparent distress Respiratory/Chest: no respiratory distress, no accessory muscle use Abdomen: normal bowel sounds, non tender, soft, + pertinent finding (+BIRD drain) Laboratory Results Last 24 Hours Test 05/07/17 04:30 05/07/17 12:40 White Blood Count 9.49 K/uL Red Blood Count 4.50 M/uL Hemoglobin 13.2 g/dL Hematocrit 37.9 % Mean Corpuscular Volume 84.2 fL Mean Corpuscular Hemoglobin 29.3 pg Mean Corpuscular Hemoglobin Concent 34.8 g/dl Platelet Count 308 K/uL Mean Platelet Volume 9.3 fL Neutrophils (%) (Auto) 79.0 % Lymphocytes (%) (Auto) 12.3 % Monocytes (%) (Auto) 8.4 % Eosinophils (%) (Auto) 0.1 % Basophils (%) (Auto) 0.1 % Neutrophils # (Auto) 7.49 K/uL Lymphocytes # (Auto) 1.17 K/uL Monocytes # (Auto) 0.80 K/uL Eosinophils # (Auto) 0.01 K/uL Basophils # (Auto) 0.01 K/uL RDW Standard Deviation 40.8 fL RDW Coefficient of Variation 13.5 % Immature Granulocyte % (Auto) 0.1 % Immature Granulocyte # (Auto) 0.01 K/uL Sodium Level 137 mmol/L 138 mmol/L Potassium Level 3.4 mmol/L 3.2 mmol/L Chloride Level 101 mmol/L 104 mmol/L Carbon Dioxide Level 27 mmol/L 28 mmol/L Anion Gap 9.0 mmol/L 6.0 mmol/L Blood Urea Nitrogen 11 mg/dl 12 mg/dl Creatinine 1.48 mg/dl 1.09 mg/dl Est Creatinine Clear Calc Drug Dose 64.9 ml/min 88.1 ml/min Estimated GFR () 55.2 79.8 Estimated GFR (Non- 47.6 68.9 BUN/Creatinine Ratio 7.6 10.7 Random Glucose 107 mg/dl 93 mg/dl Calcium Level 8.8 mg/dl 8.2 mg/dl Total Bilirubin 1.0 mg/dl 1.6 mg/dl Direct Bilirubin 0.5 mg/dl Aspartate Amino Transf (AST/SGOT) 109 U/L 169 U/L Alanine Aminotransferase (ALT/SGPT) 101 U/L 148 U/L Alkaline Phosphatase 57 U/L 53 U/L Total Protein 7.5 gm/dl 6.5 gm/dl Albumin 3.5 gm/dl 3.0 gm/dl Amylase Level 702 U/L 588 U/L Lipase 8901 U/L 6101 U/L Globulin 3.5 gm/dl Albumin/Globulin Ratio 0.9 Assessment and Plan This is a 71 year old male with a PMH of HTN, PVCs - presents with abdominal pain and subsequently found to have gallstone pancreatitis Acute Gallstone Pancreatitis 05/07 doing well kidney function, lipase and LFTs elevated this morning lipase and creat trending down this afternoon plan to d/c home - outpatient f/u with surgery and PCP outpatient CMP, Lipase as outpatient 05/06 s/p cholecystectomy clear liquid diet plan for d/c home in AM appreciate general surgery input 05/05 plan for cholecystectomy in AM (05/06) he will be NPO after midnight continue IVFs 05/04 Lipase elevated on admission CT, gallbladder US, MRCP shows acute cholecystitis there had been some CBD dilatation acute pancreatitis likely secondary to gallstone had been on fluids, NPO, doing better now appreciate GI and general surgery input General Surgery recommends cholecystectomy on on clears and NPO after midnight on 05/05 Sinus Bradycardia HRs in the 40s-50s will hold b-duncan, and monitor PVCs holding b-duncan may need cardio input if HRs remain low Incidental Renal Mass A 1.3 cm solid right renal mass. This is suspicious for renal cell carcinoma. This can be confirmed with follow-up dedicated renal MRI outpatient renal MRI HTN hold Bystolic monitor BP DVT ppx subq heparin FULL CODE Discharge planning: home
--- NOTE | 2017-05-07 15:32 | Discharge Instructions ---
Discharge Instructions Date of Service May 07, 2017. Admission Reason for Admission: Acute Pancreatitis Discharge Discharge Diagnosis / Problem: Acute Gallstone Pancreatitis Discharge Goals Goal(s): Decrease discomfort, Improve function, Diagnostic testing, Therapeutic intervention Activity Recommendations Activity Limitations: per Instructions/Follow-up section . Instructions / Follow-Up Instructions / Follow-Up Please follow-up with Dr. Powers (covering for Dr. Roper) on May 14 at 10:45AM * You will need Cipro (antibiotic) for five days * You will be on potassium supplements * Take Percocet for pain only as needed - and do not drive if you take this * outpatient follow-up with general surgery to have drain removed * You will need blood work as outpatient - complete metabolic profile to check liver, kidneys, electrolytes as well as a lipase level to check the pancreas; next week * You should have a renal MRI as an outpatient to evaluate for a kidney mass Current Hospital Diet Patient's current hospital diet: Low Fat Diet Discharge Diet Recommended Diet: Low Fat Diet Procedures Procedures Performed: Laparoscopic Cholecystectomy with Cholangiogram Pending Studies Studies pending at discharge: no Laboratory Results Lipid Panel Test 05/01/17 05:58 Range/Units Triglycerides Level 63 0-150 mg/dl Cholesterol Level 98 0-200 mg/dl HDL Cholesterol 43 mg/dl Cholesterol/HDL Ratio 2.3 LDL Cholesterol, Calculated 42 mg/dl Medical Emergencies . Who to Call and When: Medical Emergencies: If at any time you feel your situation is an emergency, please call 911 immediately. . Non-Emergent Contact Non-Emergency issues call your: Primary Care Provider . . "Provider Documentation" section prepared by Irlanda Lizama. . VTE Core Measure Inpt VTE Proph given/why not?: Annika Turner, SCD's
--- NOTE | 2017-05-07 15:36 | Discharge Summary ---
Discharge Summary Date of Service May 07, 2017. Discharge Summary Admission Date: Apr 30, 2017 at 16:40 Discharge Date: May 07, 2017 Discharge Disposition: Home Principal Diagnosis: Acute Gallstone Pancreatitis HTN PVCs Sinus Bradycardia Incidental Renal Mass Medication Reconciliation New Medications: Ciprofloxacin Hcl (Cipro) 500 Mg Tab 500 MG PO BID, #8 TAB Oxycodone/Acetaminophen 5MG/325MG (Percocet 5MG/325MG) Tab 1-2 TABLETS PO Q4H PRN for Pain for 3 Days, #30 TAB Potassium Chloride (Klor-Con M20) 20 Meq Tabcr 1 TAB PO BID, #6 Continued Medications: Allopurinol (Allopurinol) 100 Mg Tab 100 MG PO DAILY Aspirin (Aspirin Chewable) 81 Mg Chew 81 MG PO DAILY, TAB Losartan Potassium (Losartan Potassium) 50 Mg Tab 50 MG PO QPM Nebivolol Hcl (Bystolic) 5 Mg Tab 5 MG PO QPM, TAB Pantoprazole Sodium (Protonix) 40 Mg Tab 40 MG PO DAILY, #30 TAB Simvastatin (Zocor) 20 Mg Tab 20 MG PO QPM, TAB Admission Information HPI (per Admitting provider): 71 Yo presented with abdominal pain since yesterday , pain stared in mid abdomen , epigastric area and radiation to both flank had dull aching pain ,associated with Nausea this morning he woke up with similar pain 6/10 , abdominal bloating poor appetite with nausea , no episode of vomiting no fever or chills no diarrhea or dark stool called [facility] was advised to come to ER in ER lipase level elevated > 40, 000 CT abdomen pelvis /Abd USG suggestive of ac pancreatitis no Hx of ETOH intake Medication change : recently started on higher dose of simvastatin ( was on 20 mg X3 week ) to simvastatin 20 mg daily Physical Exam (per Admitting): General Appearance: no apparent distress Eyes: normal inspection, PERRL, EOMI, sclerae normal Neck: no JVD, no carotid bruits, trachea midline Respiratory/Chest: chest non-tender, lungs clear, normal breath sounds, no respiratory distress Cardiovascular: regular rate, rhythm, no edema, no JVD Abdomen/GI: + tenderness (in mid abdomen ), + abnormal bowel sounds ( hypoactive ) Extremities/Musculoskelatal: normal capillary refill, no pedal edema Neurologic/Psych: no motor/sensory deficits, alert, oriented x 3 Hospital Course This is a 71 year old male with a PMH of HTN, PVCs - presents with abdominal pain and subsequently found to have gallstone pancreatitis Acute Gallstone Pancreatitis 05/07 doing well kidney function, lipase and LFTs elevated this morning lipase and creat trending down this afternoon plan to d/c home - outpatient f/u with surgery and PCP outpatient CMP, Lipase as outpatient 05/06 s/p cholecystectomy clear liquid diet plan for d/c home in AM appreciate general surgery input 05/05 plan for cholecystectomy in AM (05/06) he will be NPO after midnight continue IVFs 05/04 Lipase elevated on admission CT, gallbladder US, MRCP shows acute cholecystitis there had been some CBD dilatation acute pancreatitis likely secondary to gallstone had been on fluids, NPO, doing better now appreciate GI and general surgery input General Surgery recommends cholecystectomy on on clears and NPO after midnight on 05/05 Sinus Bradycardia HRs in the 40s-50s will hold b-duncan, and monitor PVCs holding b-duncan may need cardio input if HRs remain low Incidental Renal Mass A 1.3 cm solid right renal mass. This is suspicious for renal cell carcinoma. This can be confirmed with follow-up dedicated renal MRI outpatient renal MRI HTN hold Bystolic monitor BP DVT ppx subq heparin FULL CODE Discharge planning: home Total time spent on discharge = 40 minutes This includes examination of the patient, discharge planning, medication reconciliation, and communication with other providers. Discharge Instructions Please follow-up with Dr. Powers (covering for Dr. Roper) on May 14 at 10:45AM * You will need Cipro (antibiotic) for five days * You will be on potassium supplements * Take Percocet for pain only as needed - and do not drive if you take this * outpatient follow-up with general surgery to have drain removed * You will need blood work as outpatient - complete metabolic profile to check liver, kidneys, electrolytes as well as a lipase level to check the pancreas; next week * You should have a renal MRI as an outpatient to evaluate for a kidney mass
== END 2017-05-07 16:55 | disposition home or self-care (01) | DRG 417 ==
LOC: C.EDB 13:13 → C.MS2W 16:40 → ENRESERV 17:34 → C.MSN 05-06 14:55
PROVIDERS: ADMIT Hospitalist; ATTEND Family Medicine
PROC: BF100ZZ Fluoroscopy of Bile Ducts using High Osmolar Contrast (ICD-10-PCS; principal; 2017-05-06 11:35)
PROC: 0FT44ZZ Resection of Gallbladder, Percutaneous Endoscopic Approach (ICD-10-PCS; principal; 2017-05-06 11:35)
DX: K80.10 Calculus of gallbladder with chronic cholecystitis without obstruction (principal); K85.10 Biliary acute pancreatitis without necrosis or infection; C64.1 Malignant neoplasm of right kidney, except renal pelvis; E87.6 Hypokalemia; R00.1 Bradycardia, unspecified; I49.3 Ventricular premature depolarization; I10 Essential (primary) hypertension; E78.5 Hyperlipidemia, unspecified; E03.9 Hypothyroidism, unspecified; K21.9 Gastro-esophageal reflux disease without esophagitis; Z79.899 Other long term (current) drug therapy

== ENCOUNTER → 2017-05-10 | Outpatient (CLI) | payer OTHER, BC ==
[~2017-05-10] MED LIST changes: -ATEN50TA8 PO; +BYS/5 PO; +CIPR1TAB10 PO; +CZR50 PO; +MCRK20 PO; -ONDA4TAB7 SL; +OXYC-57 PO; -SIMV10TA2 PO; +SIMV20TA2 PO
[2017-05-10 16:57] LABS: LIPASE 2441 U/L (73-393)
== END | disposition home or self-care (01) ==
LOC: C.LAB1850 15:34
PROVIDERS: ATTEND Surgery
DX: K80.10 Calculus of gallbladder with chronic cholecystitis without obstruction (principal)

== ENCOUNTER 2020-08-08 06:16 | Observation (INO) ==
--- NOTE | 2020-07-22 08:46 | PAT Medication Instructions ---
Medication Instructions Date of Service July 22, 2020 Home Medications allopurinol 100 mg PO HS aspirin [Aspir-81] 81 mg PO QAM atorvastatin 10 mg PO PM azelastine-fluticasone 1 spray INTRANASAL BID PRN cholecalciferol (vitamin D3) [Vitamin D3] 25 mcg PO QAM cyanocobalamin (vitamin B-12) 1,000 mcg PO QAM desonide 1 applic TOPICAL BID PRN lorazepam [Ativan] 1 mg PO DAILY PRN losartan 50 mg PO QAM metronidazole 1 applic TOPICAL 2XWK PRN nebivolol [Bystolic] 5 mg PO QPM pantoprazole 40 mg PO DAILY PRN STOP taking 24 hours before surgery metronidazole 1 applic TOPICAL 2XWK PRN desonide 1 applic TOPICAL BID PRN DO NOT take the morning of surgery cholecalciferol (vitamin D3) [Vitamin D3] 25 mcg PO QAM cyanocobalamin (vitamin B-12) 1,000 mcg PO QAM losartan 50 mg PO QAM Take morning of surgery With a small sip of water, OTHERWISE NOTHING TO EAT OR DRINK AFTER MIDNIGHT: aspirin [Aspir-81] 81 mg PO QAM (take as normal unless told otherwise by surgeon) azelastine-fluticasone 1 spray INTRANASAL BID PRN (if needed) lorazepam [Ativan] 1 mg PO DAILY PRN (if needed) pantoprazole 40 mg PO DAILY PRN(if needed) Take evening before surgery allopurinol 100 mg PO HS atorvastatin 10 mg PO PM azelastine-fluticasone 1 spray INTRANASAL BID PRN (if needed) lorazepam [Ativan] 1 mg PO DAILY PRN (if needed) nebivolol [Bystolic] 5 mg PO QPM pantoprazole 40 mg PO DAILY PRN (if needed) Other Notes If you have any questions please call us at [phone] or [phone] or [phone] or [phone]
--- NOTE | 2020-07-23 14:53 | Anesthesiology Consultation ---
Date of Service July 23, 2020 Assessment & Plan (1) Encounter for pre-operative examination: - Awaiting surgeon-ordered PCP clearance. - Cardiology office visit (07/15/20): "He does have new T wave inversions on EKG, possibly LVH with strain. He has no anginal symptoms and nuclear stress test completed for abnormal EKG 1 year ago was negative for inducible ischemia. He is able to complete > 5 MET workload without exertional complaints.. Chest CT will be reviewed when available. If ascending aorta remains unchanged, no further cardiac testing warranted prior to planned orthopedic surgery." Awaiting Chest CT results. - COVID screening: Per assessment on 07/23: No known COVID-19 positive contacts or current COVID-19 related symptoms. 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 Patient fully vaccinated and follows strict COVID precaution guidelines. Surgeon arranging preop COVID testing (scheduled 08/06; [place] Awaiting results. - Hx glidescope intubation: Lap naldo (07/06/17): Grade 2 view, glidescope#4, ETT 7.5 at [facility] Chart Review Chart Review: Patient seen in Pre Admission Testing Teaching & Discussion Pre-Anesthesia Teaching/Discussion Notes: Instructed NPO after midnight before surgery,except medications with 15 cc of water. Medication instructions provided according to the PAT guidelines. History Surgery Operation Date: 08/08/20 08:15 Proposed Procedures p Left Total Knee Arthroplasty - Dion Alexander MD Height/Weight Height: 6 ft Weight: 118.3 kg Allergies Allergy/AdvReac Type Severity Reaction Status Date / Time No Known Allergies Allergy Verified 07/16/20 11:39 Medications Home Medications Medication Instructions Recorded Confirmed Last Taken allopurinol 100 mg PO HS 07/16/20 07/16/20 Unknown aspirin [Aspir-81] 81 mg PO QAM 07/16/20 07/16/20 Unknown atorvastatin 10 mg PO PM 07/16/20 07/16/20 Unknown azelastine-fluticasone 1 spray INTRANASAL BID PRN 07/16/20 07/16/20 Unknown cholecalciferol (vitamin D3) 25 mcg PO QAM 07/16/20 07/16/20 Unknown [Vitamin D3] cyanocobalamin (vitamin B-12) 1,000 mcg PO QAM 07/16/20 07/16/20 Unknown desonide 1 applic TOPICAL BID PRN 07/16/20 07/16/20 Unknown lorazepam [Ativan] 1 mg PO DAILY PRN 07/16/20 07/16/20 Unknown losartan 50 mg PO QAM 07/16/20 07/16/20 Unknown metronidazole 1 applic TOPICAL 2XWK PRN 07/16/20 07/16/20 Unknown nebivolol [Bystolic] 5 mg PO QPM 07/16/20 07/16/20 Unknown pantoprazole 40 mg PO DAILY PRN 07/16/20 07/16/20 Unknown Past Medical History Medical History Anxiety Aortic aneurysm Thoracic ascending aorta dilated at 46mm per 03/2019 CT ([facility]) > patient to have surveillance CT chest updated 08/01/20 ([facility]) CKD (chronic kidney disease) Stage III GERD (gastroesophageal reflux disease) controlled Gout Hyperlipidemia Hypertension Nonischemic cardiomyopathy Follows with [facility] cardiology Obesity PVC (premature ventricular contraction) Exercise / Class Metabolic Activity II 4-5 Yardwork/Stairs/Walk up hill (one flight of stairs (no chest pain, no sob)) Past Family History Family History Other No known health problems Past Surgical History Surgical History History of cataract surgery R/L History of cholecystectomy Lap naldo (07/06/17): Grade 2 view, glidescope#4, ETT 7.5 at [facility] History of colonoscopy History of esophagogastroduodenoscopy (EGD) Past Anesthesia History No Family Hx of Anesthesia Complications and Other "Stopped breathing" during colonoscopy/EGD 2011 ([facility]). Colonoscopy/EGD anesthesia records from [facility] scanned into [employer]. Per anesthesia records "starting EGD pt coughing.. airway ?obstruction.. O2 sat decreased.. EGD d iscontinued.. mask vent. with nasal and oral airway" > recovered without sequela. Subsequent lap naldo 07/2017 at [facility] without issue. History of PONV No Hx of PONV and No Hx of Motion Sickness Social History Smoking Status: Never smoker Do You Dip or Chew Tobacco: No Hx Alcohol Use: Yes Alcohol type: wine alcohol intake frequency: a few times a week Hx Substance Use: No Review of Systems Patient denies chest pain, shortness of breath, dyspnea on exertion, fever, chills, cough, wheezing, palpitations. Physical Exam Vital Signs VITALS BP 115/72 P 55 TEMP 98.7 SP02 95%RA RESP 16 PHYSICAL Full cervical extension range of motion. Full TMJ range of motion. TMD 3 finger breaths Mallampati Score 3 Dentition: missing molar Lungs: clear throughout to auscultation Cardiac: regular rate and rhythm, no murmurs noted Spine: normal Carotid arteries: negative bruit Extremities: no edema Large tongue Thick neck Testing Laboratory Results 07/23/20 15:20 PT 11.2 Seconds (9.0-12.0) 07/23/20 15:20 INR 1.1 (0.9-1.1) 07/23/20 15:20 Urine Color Yellow 07/23/20 15:20 Urine Appearance Clear (Clear) 07/23/20 15:20 Urine pH 5.5 (4.5-7.5) 07/23/20 15:20 Ur Specific [place] 1.025 (1.000-1.030) 07/23/20 15:20 Urine Protein Negative (Negative) 07/23/20 15:20 Urine Glucose (UA) Negative (Negative) 07/23/20 15:20 Urine Ketones Negative (Negative) 07/23/20 15:20 Urine Nitrite Negative (Negative) 07/23/20 15:20 Ur Leukocyte Esterase Negative (Negative) 07/23/20 15:20 Blood Type A Positive 07/23/20 15:20 Antibody Screen NEGATIVE 07/23/20 15:20 07/19/20 WBC 6.39 H/H 14.8/44.1 PLATELETS 246 HGBA1C 5.9% Electrocardiogram Date: 07/15/20 Sinus bradycardia with first-degree AV block at 53 bpm. High voltage QRS may be normal variant or due to LVE. T wave abnormality, consider anterior lateral ischemia. Compared to 09/21/2019 EKG, nonspecific T wave abnormality in inferior leads and T wave inversion more evident in anterior lateral leads per window installation subcontractor review. EKG done and reviewed at 07/15/2020 cardiology preop evaluation appointment. Echocardiogram Date: 03/25/20 LVEF 50 to 54%. No regional wall motion abnormality. Sinus bradycardia with frequent ventricular ectopy during the examination. Moderately increased concentric LV wall thickness. Grade 1 diastolic dysfunction. No significant valvular disease. Aortic root and proximal ascending aorta moderately enlarged (4.1 cm / 4.5 cm). Stress Test Date: 03/23/19 Type: nuclear Gated SPECT imaging reveals normal myocardial thickening and wall motion. LVEF 57%. Lexiscan nuclear cardiac stress test negative for ischemia. 67% MPHR.
[2020-07-23 16:10] LABS: INR 1.1 (0.9-1.1); Prothrombin Time 11.2 Seconds (9.0-12.0)
[2020-07-23 16:22] LABS: Calcium 9.5 mg/dl (8.5-10.1); Creatinine Clr Calc Pharmacy 77.8 ml/min; Est GFR (African American) 74.1 ml/min; Est GFR (Non-African American) 63.9 ml/min; Potassium 4.1 mmol/L (3.5-5.1)
[2020-07-23 16:41] LABS: Appearance Urine Clear (Clear); Bilirubin Urine Negative (Negative); Blood Urine Negative (Negative); Color Urine Yellow; Glucose Urine UA Negative (Negative); Ketones Urine Negative (Negative); Leukocyte Esterase Urine Negative (Negative); Nitrite Urine Negative (Negative); Protein Urine Negative (Negative); Specific Gravity Urine 1.025 (1.000-1.030); Urobilinogen Urine Negative (Negative); pH Urine 5.5 (4.5-7.5)
--- NOTE | 2020-07-24 16:47 | History & Physical Report ---
Date of Service July 24, 2020 Assessment & Plan Admission and Anticipated Discharge Date Admission Date: PRE-OP Diagnosis: Left knee osteoarthritis Planned Procedure: Left total knee arthroplasty Plan: Patient is scheduled to undergo this procedure at [facility] on August 08, [address] Dion Alexander. Risks and complications of the procedure such as: Infection, bleeding, pain, scarring, nerve blood vessel damage, weakness, wound problems, stiffness, incomplete relief of symptoms, hardware failure, hardware loosening, wear, fracture, tendon or ligament injury, blood clots, embolism, heart attack, stroke and were explained to the patient at his visit today by Dr. Alexander. Informed consent form the procedure was obtained. Patient also understands risks of proceeding with surgical intervention during the COVID-19 pandemic. Currently he is asymptomatic and understands he will need to be tested prior to the procedure. Patient is already met with his surgical lead in obtain preoperative clearance. While at his visit he obtained an EKG, CBC, CMP, hemoglobin A1c. Patient has his preanesthesia evaluation later this afternoon while there we will obtain additional testing including PT/INR, blood type and screen, urinalysis, urine culture and sensitivity and a nasal culture for MRSA. He also has an upcoming appointment with his primary care provider Dr. Bella for medical clearance. During today's visit we discussed the total knee packet, talked about discharge planning discussed antibiotic use following total joint replacements. I provided the patient with an order to obtain a walker. Advised him he will be using a knee immobilizer for the first 48 hours postoperatively. States that he is already done the Zoom lecture with Haritha Diane, joint placement surgery. I provided him with paperwork to obtain a handicap placard for his vehicle. Advised him he will be discharged on an opioid analgesic for postoperative pain control, aspirin for blood clot prevention, diclofenac sodium for postoperative pain inflammation relief and we talked about supplemental pain control with extra Tylenol. Patient states he will most likely do in-home physical therapy for the first 2 weeks postoperatively. He is scheduled to see me for his postoperative follow-up on August 23 at 1 PM. Patient verbalized understanding of all information provided during today's visit. He thanks for the care that he received. If he has questions or concerns that should arise prior to his surgery, he will contact clinic. History of Present Illness Chief Complaint: Chief Complaint: Left knee pain Primary Care Provider: Camila Bella DO History of Present Illness (including history relevant to procedure): 74-year-old male presents the clinic today for his preoperative history and physical. Patient complains of a 12-year history of persistent left knee pain that has become increasingly worse over the past 2 years. He said he always has a dull ache, but anytime he twists his knee, he gets sharp pains which is occurring about 3-4 times per day. This only lasts a few minutes, but the dull pain never goes away. He has been taking Advil a couple of times per week. He points to the medial aspect of the knee as where it is worst. The pain is nonradiating. No numbness or tingling. Patient is failed conservative treatment measures including nonsteroidal agents, physical therapy, multiple corticosteroid injections and viscosupplementation. He is ready to proceed with total knee arthroplasty because he states that now is affecting his activities of daily living. Review Of Systems: A 14 point review of systems performed is unremarkable except for those things stated in the HPI and past medical history Past Medical History: Problems: Osteoarthritis of left knee Preop examination Left knee pain Hypertension Irregular heartbeat (PVCs) Obesity History of renal calculi Hyperlipidemia Gout Procedure History Procedure Procedure Date Comments Cholecystectomy Bilateral cataract removal May Allergies and Sensitivities: No Known Medication Allergies Social history: Patient states he consumes 1-2 alcoholic beverages per week. He denies tobacco or illicit drug use. Family history: Noncontributory Current Home Meds: (Last Updated 07/23 13:33) allopurinol 100 mg PO Daily aspirin (Aspir 81) 81 mg PO Daily atorvastatin (atorvastatin 10 mg oral tablet) 10 mg PO Daily cholecalciferol (Vitamin D3) 1,000 Int_Unit PO Daily losartan (losartan 50 mg oral tablet) 50 mg PO Daily nebivolol (Bystolic 5 mg oral tablet) 5 mg PO Daily Initial Wt: 07/23 122.0 kg 268 lb Allergies Allergy/AdvReac Type Severity Reaction Status Date / Time No Known Allergies Allergy Verified 07/16/20 11:39 Home Medications Medication Instructions Recorded Confirmed Type allopurinol 100 mg PO HS 07/16/20 07/16/20 History aspirin [Aspir-81] 81 mg PO QAM 07/16/20 07/16/20 History atorvastatin 10 mg PO PM 07/16/20 07/16/20 History azelastine-fluticasone 1 spray INTRANASAL BID PRN 07/16/20 07/16/20 History cholecalciferol (vitamin D3) 25 mcg PO QAM 07/16/20 07/16/20 History [Vitamin D3] cyanocobalamin (vitamin B-12) 1,000 mcg PO QAM 07/16/20 07/16/20 History desonide 1 applic TOPICAL BID PRN 07/16/20 07/16/20 History lorazepam [Ativan] 1 mg PO DAILY PRN 07/16/20 07/16/20 History losartan 50 mg PO QAM 07/16/20 07/16/20 History metronidazole 1 applic TOPICAL 2XWK PRN 07/16/20 07/16/20 History nebivolol [Bystolic] 5 mg PO QPM 07/16/20 07/16/20 History pantoprazole 40 mg PO DAILY PRN 07/16/20 07/16/20 History Past Med/Surg History Medical History Anxiety Aortic aneurysm Thoracic ascending aorta dilated at 46mm per 03/2019 CT ([facility]) > patient to have surveillance CT chest updated 08/01/20 ([facility]) CKD (chronic kidney disease) Stage III GERD (gastroesophageal reflux disease) controlled Gout Hyperlipidemia Hypertension Nonischemic cardiomyopathy Follows with [facility] cardiology Obesity PVC (premature ventricular contraction) Surgical History History of cataract surgery R/L History of cholecystectomy Lap naldo (07/06/17): Grade 2 view, glidescope#4, ETT 7.5 at [facility] History of colonoscopy History of esophagogastroduodenoscopy (EGD) Family History Other No known health problems Social History Smoking Status: Never smoker Second Hand Exposure: Yes (FATHER SMOKED); Hx Alcohol Use: Yes Alcohol type: wine Hx Substance Use: No Preferred Language: Turkish Communication Ability: Effective Director Of Food And Nutrition Services Required: No Beliefs That Will Affect Care: None Current Living Situation: Spouse current occupational status: employed 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 Extract movements are intact Throat: Deferred due to COVID-19 precautions Cardiac: Regular rate with irregular rhythm but no murmurs or gallops appreciated Lungs: Clear to auscultation throughout with no wheezing, rales or rhonchi Abdomen: Obese, nondistended, nontender with normoactive bowel sounds Extremities: Left knee exam shows the patient to have a trace effusion today. He is tender palpation along the medial facet of the patella as well as along the medial joint line. The lateral joint line is okay. Range of motion is from 0 to 120 degrees. Neuro: Cranial nerves II through XII intact no motor or sensory deficit Skin: Normal in appearance no open skin areas or discharge Results & Data ([facility]) Laboratory Results Lab Results 07/23/20 07/23/20 07/23/20 Range/Units 15:20 15:20 15:20 PT 11.2 (9.0-12.0) Seconds INR 1.1 (0.9-1.1) Sodium 142 (136-145) mmol/L Potassium 4.1 (3.5-5.1) mmol/L Chloride 110 H (98-107) mmol/L Carbon Dioxide 28 (21-32) mmol/L Anion Gap 4.0 (3-11) BUN 14 (7-18) mg/dl Creatinine 1.14 (0.6-1.4) mg/dl Est Cr Clr Drug Dosing 77.8 ml/min Est GFR ( Amer) 74.1 ml/min Est GFR (Non-Af Amer) 63.9 ml/min BUN/Creatinine Ratio 12.0 (10-20) Glucose 97 (70-99) mg/dl Calcium 9.5 (8.5-10.1) mg/dl Urine Color Urine Appearance (Clear) Urine pH (4.5-7.5) Ur Specific [place] (1.000-1.030) Urine Protein (Negative) Urine Glucose (UA) (Negative) Urine Ketones (Negative) Urine Blood (Negative) Urine Nitrite (Negative) Urine Bilirubin (Negative) Urine Urobilinogen (Negative) Ur Leukocyte Esterase (Negative) Nasal Screen MRSA (PCR) (Negative) Blood Type A Positive Antibody Screen NEGATIVE 07/23/20 07/23/20 Range/Units 15:20 15:21 PT (9.0-12.0) Seconds INR (0.9-1.1) Sodium (136-145) mmol/L Potassium (3.5-5.1) mmol/L Chloride (98-107) mmol/L Carbon Dioxide (21-32) mmol/L Anion Gap (3-11) BUN (7-18) mg/dl Creatinine (0.6-1.4) mg/dl Est Cr Clr Drug Dosing ml/min Est GFR ( Amer) ml/min Est GFR (Non-Af Amer) ml/min BUN/Creatinine Ratio (10-20) Glucose (70-99) mg/dl Calcium (8.5-10.1) mg/dl Urine Color Yellow Urine Appearance Clear (Clear) Urine pH 5.5 (4.5-7.5) Ur Specific [place] 1.025 (1.000-1.030) Urine Protein Negative (Negative) Urine Glucose (UA) Negative (Negative) Urine Ketones Negative (Negative) Urine Blood Negative (Negative) Urine Nitrite Negative (Negative) Urine Bilirubin Negative (Negative) Urine Urobilinogen Negative (Negative) Ur Leukocyte Esterase Negative (Negative) Nasal Screen MRSA (PCR) Negative (Negative) Blood Type Antibody Screen Diagnostic Findings Studies (relevant to the procedure): X-rays done in September of 2019 are reviewed. These demonstrated the patient to be [id number] arthritis at that time.
[~2020-08-08 06:16] MED LIST changes: +ACETAMINOPHEN 500 MG TAB PO SCH; -ALLO1TAB51 PO; -ASPCH81X PO; -BYS/5 PO; -CIPR1TAB10 PO; -CZR50 PO; +CeleBREX 200 MG CAP PO SCH; +FAMOTIDINE 20 MG TAB PO SCH; +LR 500ML BOLUS, THEN 15ML/HR IV SCH; +LR 60ML/HR IV SCH; -MCRK20 PO; +METOCLOPRAMIDE HCL 10 MG TABLET PO SCH; -OXYC-57 PO; -PANT40TA PO; +ROPIVACAINE 0.5% HCL/PF 150 MG, BUPIVACAINE 0.75% MPF 20 ML, EPINEPHrine 0.15 MG, Ketor... INFIL SCH; -SIMV20TA2 PO; +Scopolamine 1 MG TDSY TD SCH; +TRANEXAMIC ACID 1,000 MG **IV Intra-op IV SCH; +TRANEXAMIC ACID 1,000 MG **IV Pre-op IV SCH; +dexAMETHasone 4 MG TAB PO SCH; +traMADol HCL 50 MG TABLET PO SCH
[2020-08-08] MEDS ORDERED: BUPIVACAINE 0.5 % 5 MG/1 ML PF 10ML VIAL ONE (06:37)
[2020-08-08] MEDS ORDERED: BUPIVACAINE 0.25% 30 ML VIAL ONE (06:37)
[2020-08-08] MEDS ORDERED: fentaNYL citrate 100 MCG/2 ML VIAL ONE (07:36)
[2020-08-08] MEDS ORDERED: MIDAZOLAM HCL 1 MG/ML 2ML VIAL ONE (07:36)
--- NOTE | 2020-08-08 07:47 | History & Physical Bridge Note ---
Date of Service August 08, 2020 History & Physical Bridge Note I have examined the patient, reviewed the History & Physical and in the interval since the performance of the History & Physical I have noted the following changes of clinical significance: no changes noted
[2020-08-08] MEDS ORDERED: ORTHO JOINT ANESTHETIC ONE (07:52)
[2020-08-08] MEDS ORDERED: ePHEDrine sulfate 50 MG/ML AMP IV PRN (08:42)
[2020-08-08] MEDS ORDERED: ATROPINE SULFATE 0.1 MG/ML 10ML SYR IV PRN (08:42)
[2020-08-08] MEDS ORDERED: PROPOFOL IV EMULSION 10 MG/ML 20 ML VIAL IV ONE (09:57)
[2020-08-08] MEDS ORDERED: LIDOCAINE 2% 2 ML VIAL/AMP(20MG/ML) INFIL ONE (09:57)
--- NOTE | 2020-08-08 10:25 | Operative Report ---
Post Operative Report Pre & Post Diagnosis Operation Date: 08/08/20 08:15 Pre-Op Diagnosis: Left Knee Arthritis Post-Op Diagnosis: Left Knee Arthritis I identified the patient and participated in the time-out.: Yes Procedure Operation Date: 08/08/20 08:15 Actual Procedures p Left Total Knee Arthroplasty(Left) - Dion Alexander MD Surgeon Dion Alexander MD Network Strategist SERGIO Phelan PA-C and Julia Lynne MS-2 Estimated Blood Loss 100 Findings Consistent with Post-Op Diagnosis Specimens Bone and soft tissue contents left knee Anesthesia Type Spinal MAC Complications none Disposition Accompanied Patient To Recovery: No Disposition: Recovery Room Indications 74-year-old male with left knee arthritis refractory to conservative management. X-rays show near complete loss of his tibiofemoral joint space on the left knee and tricompartmental osteophyte formation. I had a long discussion with him about the risks and benefits of surgery, alternatives to surgery, and expected outcomes. After reviewing all these patient elected to proceed. All questions were answered. Informed consent was signed. Description of Procedure Patient was identified in the preoperative holding area where the surgical site, left knee, was marked. Patient was brought back to the operating room, placed on the operating room table, and IV sedation was administered. All bony prominences were padded. Perioperative antibiotics and tranexamic acid were administered. Exam under anesthesia was performed. This demonstrated the patient to have a 8 degree flexion contracture and flexion up to 130 degrees. He had varus alignment with pseudolaxity to valgus stressing at 30 degrees. The surgical site was prepped and draped in the normal sterile fashion. Prior to incision a multidisciplinary timeout was called. All in the room were in agreement. We began by exsanguinating the limb with an Esmarch bandage. Tourniquet was inflated to 250 mmHg. A 14 cm long incision was made over the anterior aspect of the knee. I dissected through the subcutaneous tissues to the level of the fascia. Full-thickness flaps are raised above the fascia. A median parapatellar arthrotomy was made. Half the fat pad was excised. A medial release was performed with Bovie electrocautery on the proximal tibia. Synovitis in the suprapatellar pouch was removed. The patella was then everted and held with 2 towel clips. The thickness of the patella was measured at 26 mm. Patellar resection was performed. Caliper showed the patella thickness now to be 15 mm. A size 41 mm trial was placed and had a great fit. The 3 drill holes were placed then the trial button was placed. The patellar thickness was now 26 mm which I was very happy with. The patellar trial was then removed, the patella was everted and the knee was flexed up. Osteophytes were removed from the femoral condyles and intercondylar notch. The ACL and PCL were excised. Intramedullary drill guide was drilled into the femur. Distal femoral cutting guide was placed set at 5 degrees of valgus to resect 11 mm off the distal femur. Distal femoral resection was made without difficulty. The tibia was then exposed. The lateral meniscus was sharply excised. The tibial cutting jig was positioned to resect 10 mm off the less involved compartment. The jig was then pinned in position and the tibial cut was made. We then brought the knee into full extension. Lamina spreaders were placed. The medial meniscus was excised. The extension block was then placed for 10 mm thickness poly. This gave us full extension and excellent stability to varus and valgus. Next the knee was flexed up and the femoral sizing guide was placed. The patient sized to a size 5 femur. The 3 degree external rotation jig was used to create 2 holes in the distal femur. The jig was removed and the holes were compared to Whitesides axis and the epicondylar axis. We were happy with the rotation, and therefore placed a size three 4-in-1 cutting jig and pinned this into position. Our 4 cuts were made. The cutting jig was removed. The flexion block was then placed with the knee held at 90 degrees. There was excellent stability to varus and valgus at 90 degrees with no gapping medially or laterally. Next the box cutting jig was placed on the distal femur. The box cut was made and the femoral trial was impacted into position. The tibia was sized to a 5 for a all polyethylene tibial component. The tibial tray was positioned in external rotation on the cut tibial surface and the knee was brought through a full range of motion. We then pinned the tibial tray into position and used the intramedullary drill followed by the keel punch. The trial polyethylene was then placed and the knee was brought through a full range of motion. I was very happy with the stability through a full range of motion, and the patellar tracking was excellent. Next the trial components were removed. I then injected the posterior capsule and periosteum with the periarticular injection cocktail. The bone cuts were then irrigated and dried while the cement was mixed on the back table. The femoral component was cemented on first. Excess cement was removed. A lap sponge was placed over the femoral component for protection, then the tibia was subluxated anteriorly. The tibial component was then cemented in place. Again excess cement was removed. The knee was brought into full extension and held there until the cement cured. The patella was cemented and clamped. Dilute Betadine solution was then allowed to irrigate the knee while the cement cured. Once the cement was fully cured, the tourniquet was let down and meticulous hemostasis was ensured. The wound was irrigated out with copious amounts normal saline. The knee was brought through a full range of motion and we are very happy with the patella tracking and the stability. We then began to close. Interrupted 0 Vicryl suture was used to repair the patellar retinaculum in [id number] fashion. The quadriceps and patellar tendons were run with #1 Ethibond. The deep dermal layer was closed with interrupted 2-0 Vicryl. Zipline was used for the skin. A compressive dressing was placed. Patient's sedation was lifted and was transferred to recovery room in stable condition. Summary of implants: Depuy Sigma Posterior Stabilized Cemented Femur, size 5 Tibial all-polyethylene component, 10 mm thickness, size 5 Oval come patella, size 41 mm 2 batches of simplex HV bone cement Postoperative course: Patient will be admitted to the floor for pain control and monitoring. Weightbearing as tolerated with no knee range of motion for 48 hours. Aspirin for DVT prophylaxis. I attest to the content of the Intraoperative Record and any orders documented therein. Any exceptions are noted below.
[2020-08-08] MEDS ORDERED: bisacodyL 10 MG SUPP PR PRN (10:28)
[2020-08-08] MEDS ORDERED: NALOXONE HCL 0.4 MG/1 ML VIAL/CARP IV PRN (10:28)
[2020-08-08] MEDS ORDERED: diphenhydrAMINE 50 MG/ML VIAL IV PRN (10:28)
[2020-08-08] MEDS ORDERED: ALUMINUM/MAGNESIUM SUSP 30 ML UDC PO PRN (10:28)
[2020-08-08] MEDS ORDERED: oxyCODONE HCL IR 5 MG TAB (IMMEDIATE RELEASE) PO PRN (10:28)
[2020-08-08] MEDS ORDERED: HYDROmorphone INJ 0.5 MG/0.5 ML SYR IV PRN (10:28)
[2020-08-08] MEDS ORDERED: TAMSULOSIN HCL 0.4 MG CAP PO PRN (10:28)
[2020-08-08] MEDS ORDERED: MAGNESIUM HYDROXIDE SUSP 30 ML UDC PO PRN (10:28)
[2020-08-08] MEDS ORDERED: METOCLOPRAMIDE HCL INJ 5 MG/ML 2 ML VIAL IV PRN (10:28)
[2020-08-08] MEDS ORDERED: ONDANSETRON INJ 2 MG/ML 2 ML VIAL IV PRN (10:28)
--- NOTE | 2020-08-08 10:28 | Operative Report ---
Post Operative Report Pre & Post Diagnosis Operation Date: 08/08/20 08:15 Pre-Op Diagnosis: Left Knee Arthritis Post-Op Diagnosis: Left Knee Arthritis I identified the patient and participated in the time-out.: Yes Procedure Operation Date: 08/08/20 08:15 Actual Procedures p Left Total Knee Arthroplasty(Left) - Dion Alexander MD Surgeon Dion Alexander MD [facility] Justice SERGIO Phelan PA-C and Julia Lynne MS-2 Estimated Blood Loss 100 Findings Consistent with Post-Op Diagnosis Specimens none Complications none Disposition Accompanied Patient To Recovery: No Disposition: Recovery Room Description of Procedure I was present during the entire case assisting with positioning, prepping, draping, wound retraction, wound closure, dressing and immobilizer application. No fellow present. Please see Dr. Alexander procedure note for specifics of the case. I attest to the content of the Intraoperative Record and any orders documented therein. Any exceptions are noted below.
[2020-08-08] MEDS ORDERED: PANTOprazole 40 MG TAB PO PRN (10:32)
[2020-08-08] MEDS ORDERED: DESONIDE CR 15 GM TUBE EXT PRN (10:32)
[2020-08-08] MEDS ORDERED: LORazepam 1 MG TAB PO PRN (10:44)
--- NOTE | 2020-08-08 10:55 | Anesthesiology Progress Note ---
Date of Service August 08, 2020 Anesthesia Post Procedure Vital Signs Vital Signs: Temp Pulse Pulse Resp BP Pulse Ox 08/08/20 10:45 55 L 16 120/71 97 08/08/20 10:35 57 L 16 120/71 97 08/08/20 10:28 36.1 C L 73 12 109/60 96 08/08/20 06:50 36.9 C 53 L 20 142/79 H 96 Transfer of Care Handoff Completed per policy Notes Mental Status: alert / awake / arousable and participated in evaluation Nausea / Vomiting: adequately controlled Pain: adequately controlled Airway Patency, RR, SpO2: stable & adequate BP & HR: stable & adequate Hydration State: stable & adequate Neuraxial Anesthesia: was administered and sensory block is resolving Anesthetic Complications: no major complications apparent and Pt Satisfied with anesthetic care
[2020-08-08] MEDS: SODIUM CHLORIDE 0.9% 1000ML 1,000 ML IV SCH ×2 (11:57→21:23)
[2020-08-08] MEDS: KETOROLAC TROMETHAMINE 15 MG/ML VIAL IV SCH ×2 (11:57→17:26)
--- NOTE | 2020-08-08 13:21 | XRay Report ---
XR knee LT 1 or 2V routine CLINICAL HISTORY: Surgical Post Op COMPARISON: July 23, 2020 DISCUSSION: Interval placement of femoral component of the metallic prosthetic knee joint. Postoperative changes within proximal left tibia is seen without metallic tibial component of a prost hetic knee joint. Subcutaneous emphysema and soft tissue edema is seen. IMPRESSION: Postoperative changes as detailed above. ACT 112: Negative or not required by law. The above report was generated using voice recognition software. It may contain grammatical, syntax o r spelling errors. Electronically signed by: Deneen Naylor DO 08/08/2020 1:20 PM
[2020-08-08] MEDS ORDERED: COUGH DROP (SUGAR FREE) LOZ 24 LOZ/1 BOX BUCCAL ONE (13:53)
[2020-08-08] MEDS: ACETAMINOPHEN 500 MG TAB PO SCH ×2 (13:55→21:27)
[2020-08-08] MEDS: METRONIDAZOLE 0.75% SCH (15:22)
[2020-08-08] MEDS: ceFAZolin 2000MG 2,000 MG/15 ML SYR IV SCH (16:03)
[2020-08-08] MEDS: Scopolamine CHECK PATCH PLACEMENT SCH (16:04)
[2020-08-08] MEDS ORDERED: TRANEXAMIC ACID / 0.7% NACL 1,000 MG/100 ML BAG IV SCH (16:30)
[2020-08-08] MEDS: DOCUSATE SODIUM 100 MG CAP PO SCH (20:52)
[2020-08-08] MEDS ORDERED: allopurinoL 100 MG TAB PO SCH (21:00)
[2020-08-08] MEDS ORDERED: ATORVASTATIN 10 MG TAB PO SCH (21:00)
[2020-08-08] MEDS ORDERED: SENNA 8.6 MG TAB PO SCH (21:00)
[2020-08-08] MEDS: METOPROLOL TARTRATE 25 MG TAB PO SCH (21:25)
[2020-08-09] MEDS: Scopolamine CHECK PATCH PLACEMENT SCH ×2 (00:17→08:35)
[2020-08-09] MEDS: ceFAZolin 2000MG 2,000 MG/15 ML SYR IV SCH (00:17)
[2020-08-09] MEDS: METRONIDAZOLE 0.75% SCH ×2 (00:17→07:05)
[2020-08-09] MEDS: KETOROLAC TROMETHAMINE 15 MG/ML VIAL IV SCH ×2 (00:17→05:38)
[2020-08-09] MEDS: ACETAMINOPHEN 500 MG TAB PO SCH (05:38)
[2020-08-09 06:05] LABS: Hematocrit (blood only) 36.1 % (42-52); Hemoglobin 12.1 g/dL (14.0-18.0); Mean Corpuscular Hemoglobin 29.5 pg (25-34); Mean Corpuscular Hgb Conc 33.5 g/dL (32-36); Mean Platelet Volume 9.8 fL (7.4-10.4); Platelet Count 192 K/uL (130-400); RDW Coefficient of Variation 13.4 % (11.5-14.5); RDW Standard Deviation 43.2 fL (36.4-46.3); White Blood Count 13.46 K/uL (4.8-10.8)
[2020-08-09 06:40] LABS: Calcium 8.5 mg/dl (8.5-10.1); Creatinine Clr Calc Pharmacy 70.2 ml/min; Est GFR (African American) 65.6 ml/min; Est GFR (Non-African American) 56.6 ml/min; Potassium 4.4 mmol/L (3.5-5.1)
[2020-08-09] MEDS ORDERED: FLUTICASONE PROPIONATE NA SPR 16 GM BTL PRN (07:30)
[2020-08-09] MEDS ORDERED: dexAMETHasone 4 MG TAB PO SCH (08:00)
[2020-08-09] MEDS: DOCUSATE SODIUM 100 MG CAP PO SCH (08:37)
[2020-08-09] MEDS: METOPROLOL TARTRATE 25 MG TAB PO SCH (08:38)
[2020-08-09] MEDS ORDERED: CHOLECALCIFEROL 1,000 UNITS 25 MCG TAB PO SCH (09:00)
[2020-08-09] MEDS ORDERED: CYANOCOBALAMIN 500 MCG TABLET (VITAMIN B-12) PO SCH (09:00)
[2020-08-09] MEDS ORDERED: MULTIVITAMIN TAB PO SCH (09:00)
[2020-08-09] MEDS ORDERED: ASPIRIN 81 MG ECTAB PO SCH ×2 (09:00)
[2020-08-09] MEDS ORDERED: LOSARTAN POTASSIUM 50 MG TAB PO SCH (09:00)
--- NOTE | 2020-08-09 11:47 | Orthopedic Progress Note ---
Date of Service August 09, 2020 Assessment & Plan (1) S/P total knee arthroplasty: PT/OT this morning Knee immobilizer use for first 48 hours postoperatively Weightbearing as tolerated with walker assistance Pain control with p.o. medication Ice with a EZ wrap DVT prophylaxis with YOGESH stockings and aspirin Keep Silverlon dressing intact until 2-week postoperative follow-up Plan on discharge home today with in-home physical therapy for the first 2 weeks postoperatively Follow-up with [facility] orthopedics as previously scheduled at your preoperative appointment With questions contact our clinic at [phone] Admission and Anticipated Discharge Date Admission Date: August 08, 2020 Subjective This 74-year-old male is day 1 status post left total knee arthroplasty. He is doing very well. Currently he is sitting in the bedside chair speaking with physical therapist. States that he has no pain whatsoever today. He states that his was a little leery about him being discharged today however he feels very stable and feels that he would be able to be safe at home. Patient denies chest pain, shortness of breath, fever, chills, sweats, lethargy, numbness or tingling in the left lower extremity. Review of Systems Review of Systems: All systems reviewed & are unremarkable except as noted in Subjective Physical Exam Physical Exam: Left knee: Knee immobilizer and outer dressing are removed. Silverlon is intact with no drainage on the central portion. Patient is able to extend his knee to 0 degrees and flex to 108 degrees before meeting some slight resistance. He is able to perform a straight leg raise test. He is able to actively dorsi and plantarflex his foot without difficulty. His calf is soft and supple nontender to palpation. There is some mild edema over the anterior surface of the knee but no erythema, ecchymosis, warmth or palpable deformity. Quad strength is 3 out of 5. Patient is neurovascularly intact in the left lower extremity. Peripheral pulses 2+. Capillary refill is less than 2 seconds. Results & Data ([facility]) Vital Signs (Past 12 Hours) Vital Signs Temp Pulse Resp BP Pulse Ox 08/09/20 07:03 36.8 C 52 L 16 101/57 L 94 08/09/20 04:08 37.1 C 52 L 16 100/54 L 94 Laboratory Results 08/09/20 08/09/20 Range/Units 05:34 05:34 WBC 13.46 H (4.8-10.8) K/uL RBC 4.10 L (4.7-6.1) M/uL Hgb 12.1 L (14.0-18.0) g/dL Hct 36.1 L (42-52) % MCV 88.0 (80-100) fL MCH 29.5 (25-34) pg MCHC 33.5 (32-36) g/dL RDW Std Deviation 43.2 (36.4-46.3) fL RDW Coeff of Nora 13.4 (11.5-14.5) % Plt Count 192 (130-400) K/uL MPV 9.8 (7.4-10.4) fL Sodium 140 (136-145) mmol/L Potassium 4.4 (3.5-5.1) mmol/L Chloride 110 H (98-107) mmol/L Carbon Dioxide 24 (21-32) mmol/L Anion Gap 6.0 (3-11) BUN 19 H (7-18) mg/dl Creatinine 1.26 (0.6-1.4) mg/dl Est Cr Clr Drug Dosing 70.2 ml/min Est GFR ( Amer) 65.6 ml/min Est GFR (Non-Af Amer) 56.6 ml/min BUN/Creatinine Ratio 15.0 (10-20) Glucose 149 H (70-99) mg/dl Calcium 8.5 (8.5-10.1) mg/dl
[2020-08-09] MEDS ORDERED: CeleBREX 200 MG CAP PO SCH (12:00)
--- NOTE | 2020-08-09 12:22 | Discharge Summary ---
Date of Service August 09, 2020 Admission HPI Per Admitting Provider History of Present Illness (including history relevant to procedure): 74-year-old male presents the clinic today for his preoperative history and physical. Patient complains of a 12-year history of persistent left knee pain that has become increasingly worse over the past 2 years. He said he always has a dull ache, but anytime he twists his knee, he gets sharp pains which is occurring about 3-4 times per day. This only lasts a few minutes, but the dull pain never goes away. He has been taking Advil a couple of times per week. He points to the medial aspect of the knee as where it is worst. The pain is nonradiating. No numbness or tingling. Patient is failed conservative treatment measures including nonsteroidal agents, physical therapy, multiple corticosteroid injections and viscosupplementation. He is ready to proceed with total knee arthroplasty because he states that now is affecting his activities of daily living. Review Of Systems: A 14 point review of systems performed is unremarkable except for those things stated in the HPI and past medical history Past Medical History: Problems: Osteoarthritis of left knee Preop examination Left knee pain Hypertension Irregular heartbeat (PVCs) Obesity History of renal calculi Hyperlipidemia Gout Procedure History Procedure Procedure Date Comments Cholecystectomy Bilateral cataract removal May Allergies and Sensitivities: No Known Medication Allergies Social history: Patient states he consumes 1-2 alcoholic beverages per week. He denies tobacco or illicit drug use. Family history: Noncontributory Current Home Meds: (Last Updated 07/23 13:33) allopurinol 100 mg PO Daily aspirin (Aspir 81) 81 mg PO Daily atorvastatin (atorvastatin 10 mg oral tablet) 10 mg PO Daily cholecalciferol (Vitamin D3) 1,000 Int_Unit PO Daily losartan (losartan 50 mg oral tablet) 50 mg PO Daily nebivolol (Bystolic 5 mg oral tablet) 5 mg PO Daily Initial Wt: 07/23 122.0 kg 268 lb Admission Exam Per Admitting Provider Physical Exam: (relevant to the procedure, including heart and lung evaluation) General: Alert and oriented x3 with proper grooming and hygiene Eyes: Pupils are equal and reactive to light with accommodation. Extract movements are intact Throat: Deferred due to COVID-19 precautions Cardiac: Regular rate with irregular rhythm but no murmurs or gallops appreciated Lungs: Clear to auscultation throughout with no wheezing, rales or rhonchi Abdomen: Obese, nondistended, nontender with normoactive bowel sounds Extremities: Left knee exam shows the patient to have a trace effusion today. He is tender palpation along the medial facet of the patella as well as along the medial joint line. The lateral joint line is okay. Range of motion is from 0 to 120 degrees. Neuro: Cranial nerves II through XII intact no motor or sensory deficit Skin: Normal in appearance no open skin areas or discharge Principal Diagnosis Left knee osteoarthritis Discharge Exam Left knee: Knee immobilizer and outer dressing are removed. Silverlon is intact with no drainage on the central portion. Patient is able to extend his knee to 0 degrees and flex to 108 degrees before meeting some slight resistance. He is able to perform a straight leg raise test. He is able to actively dorsi and plantarflex his foot without difficulty. His calf is soft and supple nontender to palpation. There is some mild edema over the anterior surface of the knee but no erythema, ecchymosis, warmth or palpable deformity. Quad strength is 3 out of 5. Patient is neurovascularly intact in the left lower extremity. Peripheral pulses 2+. Capillary refill is less than 2 seconds. Discharge Data Allergies Allergy/AdvReac Type Severity Reaction Status Date / Time No Known Allergies Allergy Verified 08/08/20 06:37 Procedures Performed Operation Date: 08/08/20 08:15 Actual Procedures p Left Total Knee Arthroplasty(Left) - Dion Alexander MD Ordered Studies 08/08/20 05:00 US - OR guided needle placemen Routine Hospital Course (1) S/P total knee arthroplasty: Patient had an uneventful overnight stay except for some slight hypotension last evening. That is since resolved. Patient is doing very well today. He has no pain whatsoever. He is great range of motion of his knee and has been able to maneuver with his walker. Plan on discharge today with in-home physical therapy for the first 2 weeks postoperatively. PT/OT this morning Knee immobilizer use for first 48 hours postoperatively Weightbearing as tolerated with walker assistance Pain control with p.o. medication Ice with a EZ wrap DVT prophylaxis with YOGESH stockings and aspirin Keep Silverlon dressing intact until 2-week postoperative follow-up Plan on discharge home today with in-home physical therapy for the first 2 weeks postoperatively Follow-up with [facility] orthopedics as previously scheduled at your preoperative appointment With questions contact our clinic at [phone] Total Time Total Time Spent Total Time Spent (In Minutes): 20 minutes Total Time Includes: Examination of the Patient, Discharge Planning, Medication Reconciliation and Communication With Other Providers Discharge Plan Discharge Items Patient Disposition: Home - Home Health Services Reason For Visit: Left Knee Arthritis Discharge Diagnosis: Left Knee Osteoarthritis Activity: As commented below Lifting: None Bathing: Keep incision dry Bathing Comment: May shower tomorrow Sexual Activity: Wait until after follow-up appointment Exercise/Sports: Wait until after follow-up appointment Driving/Machine Use: No driving until cleared by medication specialist Weightbearing: Left weightbearing Weightbearing Comment: as tolerated with immobilizer and walker Non-emergency contact: Primary Care Provider Call non-emergency contact if: you have any medication questions, your pain is not controlled, your temperature is above 101.5, your wound has increased drainage and your wound pain has increased Follow-up/Referrals: Camila Bella, DO [Primary Care Provider] - Diet: Regular Addtl Attending Provider Instructions: Post-operative Instructions Dear Patient and Family/Friends, Before you are discharged from the hospital, it is important to know what to expect when you get home after surgery. To that end, we have created this sheet of discharge instructions which covers many commonly asked questions. Make sure you go through this sheet in its entirety with your nurse before you are discharged. Please note that we will go over the specifics of your surgery and recovery when you return for your first post-operative visit. Sincerely, Dr. Alexander Medications 1. Oxycodone 5 mg: take 1-2 tabs by mouth every 4-6 hours as needed for pain control. A prescription for 30 tablets will be sent to your pharmacy. 2. Aspirin 81 mg: increase your daily dose to 2 tabs for the first 30 days post operatively for blood clot prevention. 3. Diclofenac Sodium 75 mg: take 1 tab twice daily for 30 days post operatively for pain and inflammation relief. This will be sent to your pharmacy with 1 refill. 4. Extra Strength Tylenol 500 mg: take 2 tabs every 6-8 hours as needed for additional pain relief. Please purchase. Pain Expect to be in a fair amount of pain after surgery. Remember, our goal is not to eliminate your pain, but to make it tolerable. It is a good idea to stay ahead of your pain by taking the medications you were prescribed once you get home. Typically, the pain starts improving 3-7 days after surgery. You should start weaning off the narcotic pain medication (oxycodone, hydrocodone, hydromorphone, morphine) as soon as your pain improves. Please call our office if your pain is not adequately controlled. Ice Ice your operative site at least 5 times a day for 15-30 minutes at a time. Make sure you have a thin cloth between the ice or cooling unit and your skin to prevent esteves bite. This is especially important if you received a nerve block. Continue icing your operative site for the first 5-7 days after surgery, then as needed. Diet/Nausea/Vomiting Start by drinking clear liquids and eating crackers. If you can tolerate this, then you may resume your normal diet. If you feel nauseated or vomit, take Zofran/ondansetron (if prescribed). Please call our office if you have intractable nausea or vomiting, or, if after hours, you may go to the Emergency Room for help. Constipation Constipation is a common side effect of narcotic pain medication. If you have not had a bowel movement within 2 days after surgery, we recommend purchasing an over the counter laxative such as Milk of Magnesia, Dulcolax, or Miralax from a local pharmacy, and taking it as instructed. Call our clinic if any questions. Slings and Braces If you were placed in a sling or brace, it must be worn at all times, including sleep. You may remove your sling or brace for physical therapy, home exercises, and showering. The length of time you will be in your brace and range of motion restrictions depends on what surgery you had; these details will be reviewed at your first post-operative appointment. Nerve block The anesthesia team sometimes places a nerve block to help with post-operative pain control. This results in significant numbness and inability to move the extremity. The nerve block usually wears off in 8-12 hours, but sometimes can last up to 24 hours. Please call our office if you are still unable to move your extremity after 24 hours, unless you received a pain pump to take home. Nerve blocks typically wear off quickly, so start taking pain medication as soon as you start feeling soreness near your surgical site. Weight bearing and Range of Motion. Do not bear any weight through your operative extremity immediately after surgery. If you had upper extremity surgery, do not lift anything with that arm. If you are in a knee brace, keep it locked in place until your follow-up. We will discuss your weight bearing, range of motion, and lifting restrictions in detail at your first post-operative appointment. Continuous Passive Motion (CPM) Machine If you were prescribed a CPM machine, it will start after your first post- operative appointment, at which time we will give you instructions on the range of motion settings and duration of treatment Physical therapy You will be given a prescription for physical therapy or occupational therapy at your first post-operative appointment. Typically, patients start therapy within 1 week of surgery Wound care and showering We will inspect your wound at your first post-operative visit, and may do a dressing change at that time. Most patients will be in a water-proof dressing that is removed 14 days after surgery. It is normal to see some dried blood on the dressing. Do not remove your dressing, paper strips or sutures yourself unless you are given permission. Showering is allowed the day after surgery. Do not scrub or remove any dressings. The wound should not be submerged underwater (i.e. in a bathtub or pool) until 4 weeks after surgery YOGESH stockings If you were given white stockings, these are to be worn at all times except to shower (on both legs) for the first 2 weeks after surgery. Driving You may not drive while taking narcotic pain medication or while in a cast, splint, sling or brace. You, the patient, need to make the final determination about when you are safe to drive, however, the earliest you may consider driving after surgery is below: Hand/Wrist/Elbow Surgery: 3 days Shoulder Surgery: 2 weeks Hip,/Knee/Ankle Surgery: 4 weeks Fracture repair: 6 weeks Return to Work Your return to work depends on what surgery was done and what type of work you do. Please bring any paperwork your employer needs completed to your first post-operative visit. Also, bring a description of your job duties, as this helps us to understand what risks you may face at work. Travel Avoid long distance travel (greater than 1 hour) in airplanes and cars for the first 6 weeks after surgery. If you must travel, you need to have a Doppler ultrasound done before you travel to rule out a blood clot in your legs. Follow-up You should have a follow-up appointment already scheduled 1-2 days after surgery. If not, please contact our office to make this appointment before you leave the hospital. When to call the office It is normal to have swelling and bruising in the limb that was operated on. This will improve with time. It is also normal to have fevers for the first 2 days after surgery. Reasons you should call your doctor include: Uncontrolled pain; Nausea, vomiting, or constipation that does not improve with medication; Fevers over 101.5, chills, sweats; Drainage or bleeding from the wound; Foul odor; Spreading areas of redness; Any other concerns Pending Studies at Discharge: No Stand-Alone Forms: My [facility] Medications and DC Order Prescriptions: New oxycodone 5 mg tablet 5 mg PO Q4H MDD Initial dose Qty: 30 RF: 0 diclofenac sodium 75 mg tablet,delayed release (DR/EC) 75 mg PO BID 30 Days Qty: 60 RF: 1 Continued losartan 50 mg Tablet 50 mg PO QAM RF: 0 atorvastatin 10 mg Tablet 10 mg PO PM RF: 0 allopurinol 100 mg Tablet 100 mg PO HS RF: 0 Bystolic 5 mg Tablet 5 mg PO QPM RF: 0 cholecalciferol (vitamin D3) [Vitamin D3] 25 mcg (1,000 unit) Tablet,Chewable 25 mcg PO QAM RF: 0 cyanocobalamin (vitamin B-12) 1,000 mcg Capsule 1,000 mcg PO QAM RF: 0 desonide 0.05 % Cream 1 applic TOPICAL BID PRN (Reason: Rash) RF: 0 pantoprazole 40 mg Tablet,Delayed Release (Dr/Ec) 40 mg PO DAILY PRN (Reason: Acid Reflux) RF: 0 metronidazole 0.75 % Cream 1 applic TOPICAL 2XWK PRN (Reason: Rash) RF: 0 azelastine-fluticasone 137-50 mcg/spray Grahn,Non-Aerosol 1 spray INTRANASAL BID PRN (Reason: Congestion) RF: 0 lorazepam [Ativan] 1 mg Tablet 1 mg PO DAILY PRN (Reason: Anxiety) RF: 0 Changed aspirin 81 mg Tablet,Delayed Release (Dr/Ec) 81 mg PO BID Qty: 0 RF: 0 Discharge Orders: Discharge Order (Routine); Ordered 08/09/20 Ordered By: Luis Phelan Admission Data Admit Date/Time: 08/08/20 10:28 Attending Provider: Dion Alexander Admit Provider: Dion Alexander Primary Care Provider: Camila Bella. Other Providers: [facility],Referral [place]
== END 2020-08-09 14:17 | disposition home health service (06) ==
LOC: 3E 06:16 → ASU 06:16